=== PATIENT | female | born 1955 | race Caucasian/White ===

== ENCOUNTER 2020-10-16 19:12 | Emergency (ER) | payer BC, SELFPAY ==
[2020-10-16 19:20] VITALS: BP 134/61; PULSE 88; RESP 20; TEMP 37.2; O2SAT 98
--- NOTE | 2020-10-16 19:49 | ED.URI ---
HPI - URI/Sore Throat General Chief Complaint: Upper Respiratory Infection Stated Complaint: Sore Throat, headache, tingle feeling in the Ears Time Seen by Provider: 10/16/20 19:49 Source: patient and RN notes reviewed Mode of arrival: ambulatory Limitations: no limitations History of Present Illness HPI Narrative: 65-year-old female presents to the [facility] with complaints of generalized body aches, sore throat and itching in her ears or tingling in her ears. He just returned from [place] from vacation. is acutely ill and tested positive for Covid. Related Data Home Medications Medication Instructions Recorded Confirmed duloxetine mg PO 10/16/20 ergocalciferol (vitamin D2) 10/16/20 levothyroxine 10/16/20 omeprazole 10/16/20 potassium chloride meq PO 10/16/20 Allergies Allergy/AdvReac Type Severity Reaction Status Date / Time celecoxib Allergy Unknown Unknown Verified 10/16/20 19:30 Review of Systems Review of Systems: All systems reviewed & are unremarkable except as noted in HPI and below Constitutional: Constitutional: Reports no additional constitutional complaints, Denies chills and Denies fever(s) Eyes: Eyes: Reports no additional eye complaints ENT: Reports as per HPI and Reports sore throat Comments: Tingling in ears Cardiovascular: Cardiovascular: Reports no additional cardiovascular complaints Respiratory: Respiratory: Reports no additional respiratory complaints, Denies cough, Denies dyspnea and Denies wheezing Gastrointestinal: Gastrointestinal: Reports no additional gastrointestinal complaints Musculoskeletal: Musculoskeletal: Reports no additional musculoskeletal complaints, Denies myalgias and Denies muscle cramps Integumentary/Breasts: Skin/Breast: Reports system reviewed and no additional complaints, except as docu Neurologic: Reports system reviewed and no additional complaints, except as documented Psychiatric: Psychiatric: Reports no additional psychiatric complaints Allergic/Immunologic: Allergic/Immunologic: Reports no additional allergic/immunologic complaints [facility] Past Medical History Medical History (Updated 10/16/20 @ 20:18 by Brandy Rowe) Anxiety and depression H/O gastroesophageal reflux (GERD) Thyroid disease Surgical History Surgical History (Updated 10/16/20 @ 20:18 by Brandy Rowe) History of weight loss surgery Family History Family History Grandparent Family history of thyroid disease Diabetes mellitus Mother Family history of osteoporosis Family history of arthritis Father Hypertension Malignant neoplasm of prostate Social History Social History Smoking status: Never smoker Alcohol intake: never Comments At the time of my signature, I reviewed and agree with the nursing past medical, surgical, social, and family history. There is no relevant family history pertinent to the patient complaint. Exam Const: General: healthy appearing, no acute distress and alert Nutritional Appearance: well nourished Orientation/consciousness: patient oriented x3 Limitations: no limitations HENMT: Head: normal to inspection Ears: external ears normal, TM's normal bilaterally and EAC's normal Eyes: Conjunctivae: conjunctivae normal Pupils: Equal, round and reactive pupils present Neck: Neck: normal visual inspection, no lymphadenopathy and no meningeal signs Chest: Chest palpation & inspection: normal inspection of the chest Resp: Effort & Inspection: normal respiratory effort Auscultation: clear to auscultation bilaterally Cardio: Rate: regular rate Rhythm: regular rhythm GI: GI Palp: Yes Soft to palpation and No Tenderness to palpation present (GI) : General: Yes no CVA tenderness Skin: General skin exam: normal color Rashes: no rashes Wounds: no wounds Neuro: General: patient oriented x3, moves all extremities, n
== END 2020-10-16 20:00 | disposition home or self-care (01) ==
PROVIDERS: Emergency Provider Nurse Practitioner; PCP Internal Medicine
DX: U07.1 COVID-19 (principal); K21.9 Gastro-esophageal reflux disease without esophagitis; E07.9 Disorder of thyroid, unspecified
CPT/HCPCS: 87426; 99203; C9803; G0463

== ENCOUNTER 2021-09-01 09:24 | Outpatient (CLI) | payer MEDICARE, OTHER, SELFPAY ==
[2021-09-01] MEDS: ZOLEDRONIC ACID 5 MG/100 ML 100 ML 400 MG IVPB (09:45)
[2021-09-01 10:09] VITALS: BP 124/70; PULSE 68; RESP 14; TEMP 36.2; O2SAT 97
[2021-09-01 10:11] VITALS: BMI 47.5
--- NOTE | 2021-09-01 10:11 | PC.NURSE ---
Patient here for yearly IV Reclast infusion. Education given. No concerns voiced. IV Reclast administered. SEE MAR. Tolerated well. Safe exit of hospital.
== END 2021-09-01 09:25 | disposition home or self-care (01) ==
LOC: CHSTREATRM 09:35
PROVIDERS: PCP Internal Medicine; Visit Provider Internal Medicine
DX: M81.0 Age-related osteoporosis without current pathological fracture (principal)
CPT/HCPCS: 96365; 96374; J3489

== ENCOUNTER 2021-11-22 14:19 | Outpatient (CLI) | payer MEDICARE, SELFPAY ==
[2021-11-22 14:46] LABS: Hematocrit 41.4 % (35.0-42.0); Hemoglobin 12.9 g/dL (11.7-13.8)
== END 2021-11-22 14:20 | disposition home or self-care (01) ==
LOC: CHSLAB 14:21
PROVIDERS: PCP Internal Medicine; Visit Provider Anesthesiology
DX: D64.9 Anemia, unspecified (principal)
CPT/HCPCS: 36415; 85014; 85018

== ENCOUNTER 2021-12-02 00:57 | Day surgery (SDC) | payer MEDICARE, OTHER, SELFPAY ==
[2021-11-21 13:14] VITALS: BMI 45.8
--- NOTE | 2021-11-21 13:22 | PC.NURSE ---
PRE-OP INSTRUCTIONS, PLEASE READ CAREFULLY Report to the Outpatient Waiting Room, entrance under the green pavilion located off [facility], at time _0700_ on date _12/02/21_. OR Time: _0900_. Time changes happen often and if your time is changed the preop area will call you the afternoon before. - You and your visitor will be asked to self-screen and do not enter if you have any COVID symptoms. - We encourage only one visitor and NO visitors under age 16 are allowed at this time. Your visitor will receive communication by the phone number that is given day of service. - The patient visitor is requested to social distance or may leave the building when not with patient due to restrictions. - A mask is required within the hospital. Patients may have clear liquids (water, carbonated beverages, clear teas, apple juice) until 3 hours prior to surgery (0600 AM) with a maximum of 20 ounces. - No food from midnight until time of surgery Take the following medications with a SIP of water the morning of surgery: _LEVOTHYROXINE_ Medications to discontinue per ANESTHESIA - _VITAMINS/SUPPLEMENTS 3 DAYS PRIOR TO SURGERY, Date to take last dose 11/28/21_ Please no make-up, nail faroese, hairspray, perfume, deodorant, or body powder the day of surgery. No jewelry (including any body piercings) or valuables the day of surgery, leave them at home. Please take a shower or bath the night before, or the morning of, surgery with an antibacterial soap. Wear comfortable, loose fitting clothing. - Jewelry must be removed prior to entering the operating room. Rings and piercings that are not removed may be cut off. - The hospital will not accept responsibility for valuables. - Please leave all valuables, including medications, at home the day of surgery. If you are going home after surgery, a licensed truck driver heavy must drive you home. - NO public transportation without another adult. - We recommend that an adult stay with you for 24 hours following discharge. - We also recommend that you do not drive, make important decision, drink alcoholic beverages, or take any drugs that were not prescribed by your health care provider for at least 24 hours after your discharge time. Follow any additional instructions given to you from your surgeon. If you or anyone in your household have experienced Covid symptoms in the past week, please notify your surgeon or the nurse liaison at the phone number below for possible testing. Telephone instructions given to ___PT and asked if any additional questions and then verbalized understanding. Patient advised to call surgeon office or pre surgery nurse liaison [phone] if any additional questions.
--- NOTE | 2021-11-27 15:54 | PM.IMHP ---
H&P: HPI History of Present Illness Date/Time: 11/27/21 15:54 Chief Complaint: urge incontinence Narrative: 66-year-old who now receives Botox for urge incontinence. She would like her InterStim device removed Review of Systems Review of Systems: All systems reviewed & are unremarkable except as noted in HPI and below PMFSH Past Medical History Medical History Anxiety and depression H/O gastroesophageal reflux (GERD) Thyroid disease Surgical History Surgical History History of weight loss surgery Family History Family History Grandparent Family history of thyroid disease Diabetes mellitus Mother Family history of osteoporosis Family history of arthritis Father Hypertension Malignant neoplasm of prostate Social History Social History Smoking status: Never smoker Second hand tobacco smoke exposure: No Alcohol intake: never Substance use: never Substance use type: does not use Spiritual care concerns: No Meds Home Medications and Allergies Home Medications Medication Instructions Recorded Confirmed Type duloxetine 60 mg capsule,delayed 60 mg PO DAILY 10/16/20 11/21/21 History release ergocalciferol (vitamin D2) 1,250 1,250 mcg PO WEEKLY 10/16/20 11/21/21 History mcg (50,000 unit) capsule levothyroxine 175 mcg tablet 175 mcg PO DAILY 10/16/20 11/21/21 History omeprazole 40 mg capsule,delayed 40 mg PO DAILY 10/16/20 11/21/21 History release [place] 3 2 tab-cap HS 11/21/21 11/21/21 History biotin 1 tab-cap BID 11/21/21 11/21/21 History calcium citrate 315 mg 1 tablet PO QID 11/21/21 11/21/21 History calcium-vitamin D3 6.25 mcg (250 unit) tablet (Citracal + Vitamin D Maximum) famotidine 40 mg tablet 40 mg HS 11/21/21 11/21/21 History ferrous sulfate 325 mg (65 mg 325 mg PO HS 11/21/21 11/21/21 History iron) tablet (iron) magnesium 200 mg tablet 400 mg PO HS 11/21/21 11/21/21 History multivitamin 2 tablet PO HS 11/21/21 11/21/21 History potassium chloride 20 mEq 60 meq PO HS 11/21/21 11/21/21 History tablet,extended release(part/cryst) (Klor-Con M) vit C 250 mg-vit E 90 mg-zinc 40 1 tablet PO BID 11/21/21 11/21/21 History mg-copper 1 [id number] capsule (PreserVision AREDS-2) vitamin A 25,000 unit capsule 2,400 mcg PO QID 11/21/21 11/21/21 History zinc 50 mg tablet 50 mg PO QID 11/21/21 11/21/21 History Allergies Allergy/AdvReac Type Severity Reaction Status Date / Time celecoxib Allergy Unknown Rash Verified 11/21/21 13:05 Exam Narrative: no acute distress obese normal breathing alert oriented x3 Assessment and Plan Assessment and plan (1) Urge incontinence: Code(s): N39.41 - Urge incontinence Status: Acute Assessment and Plan: will remove her InterStim device per patient request. Risks of bleeding, infection, wound complications, incomplete device removal discussed
--- NOTE | ~2021-12-02 | XR_ITS ---
EXAMINATION: XR fluoroscopy no charge DATE: 12/02/2021 10:05 INDICATION: Neurostimulator removal TECHNIQUE: 2 fluoroscopic images of portions of the abdomen and pelvis were obtained during procedure performed by Dr. Menard. Radiologist was not present for the imaging or procedure. The amount of fl uoroscopy time used during this procedure was 0.1 minutes. COMPARISON: None. FINDINGS: Initial images demonstrate the tip of a metallic probe or hemostat projecting alongside the power sup ply of a neurostimulator which projects over the abdomen. Subsequent image demonstrates the tip of a hemostat projecting over one of the sacral ala through which passes a neurostimulator. Markers indica ting left or right sides of the imaging are not supplied however the neurostimulator and lead were ri ght-sided at the time of a prior CT dated 05/27/2015. IMPRESSION: 1. Fluoroscopy utilized during neurostimulator removal. See procedure note for further detail. Reviewed, dictated and finalized at location A.
--- NOTE | 2021-12-02 07:11 | WPDHPUPDATE1 ---
History and Physical Update Update Date/Time: 12/02/21 07:11 History and Physical has been reviewed, including an updated exam of the patient. There are NO changes in the patient's condition. Risks, benefits, and alternatives have been discussed and questions answered. Patient agrees to proceed with procedure.
[2021-12-02] MEDS: LACTATED RINGERS 1,000 ML 30 ML IV CONT (07:40)
--- NOTE | 2021-12-02 07:51 | WPDANESEPPF ---
Anes - Initial Pre Proc Eval Procedure: Operation Date: 12/02/21 09:00 Proposed Procedures p Removal of Neurostimulator Implant - Osmar Menard MD Date/Time: 12/02/21 07:51 Surgeon: Osmar Menard MD Pre Op Diagnosis: urge incontinence, malfunction of stimulator Patient Data Age: 66 Gender: F Height: 1.57 m Weight: 120 kg Allergies Allergy/AdvReac Type Severity Reaction Status Date / Time celecoxib Allergy Unknown Rash Verified 12/02/21 07:33 Home Medications Medication Instructions Recorded Confirmed Type duloxetine 60 mg capsule,delayed 60 mg PO DAILY 10/16/20 12/02/21 History release ergocalciferol (vitamin D2) 1,250 1,250 mcg PO WEEKLY 10/16/20 12/02/21 History mcg (50,000 unit) capsule levothyroxine 175 mcg tablet 175 mcg PO DAILY 10/16/20 12/02/21 History omeprazole 40 mg capsule,delayed 40 mg PO DAILY 10/16/20 12/02/21 History release [place] 3 2 tab-cap HS 11/21/21 12/02/21 History biotin 1 tab-cap BID 11/21/21 12/02/21 History calcium citrate 315 mg 1 tablet PO QID 11/21/21 12/02/21 History calcium-vitamin D3 6.25 mcg (250 unit) tablet (Citracal + Vitamin D Maximum) famotidine 40 mg tablet 40 mg HS 11/21/21 12/02/21 History ferrous sulfate 325 mg (65 mg 325 mg PO HS 11/21/21 12/02/21 History iron) tablet (iron) magnesium 200 mg tablet 400 mg PO HS 11/21/21 12/02/21 History multivitamin 2 tablet PO HS 11/21/21 12/02/21 History potassium chloride 20 mEq 60 meq PO HS 11/21/21 12/02/21 History tablet,extended release(part/cryst) (Klor-Con M) vit C 250 mg-vit E 90 mg-zinc 40 1 tablet PO BID 11/21/21 12/02/21 History mg-copper 1 [id number] capsule (PreserVision AREDS-2) vitamin A 25,000 unit capsule 2,400 mcg PO QID 11/21/21 12/02/21 History zinc 50 mg tablet 50 mg PO QID 11/21/21 12/02/21 History Patient hx anesthesia problems: none Family hx anesthesia problems: none Results Review: All pre-operative results and documents have been reviewed as part of the pre-operative evaluation. [facility] Past Medical History Medical History (Updated 12/02/21 @ 07:52 by Josh Gonzalez MD) Anxiety and depression H/O gastroesophageal reflux (GERD) HTN (hypertension) Morbid obesity CHASIDY (obstructive sleep apnea) Thyroid disease Surgical History Surgical History (Updated 12/02/21 @ 07:54 by Josh Gonzalez MD) History of total knee arthroplasty History of weight loss surgery Family History Family History Grandparent Family history of thyroid disease Diabetes mellitus Mother Family history of osteoporosis Family history of arthritis Father Hypertension Malignant neoplasm of prostate Social History Social History Smoking status: Never smoker Second hand tobacco smoke exposure: No Alcohol intake: never Substance use: never Substance use type: does not use Living arrangements: with family Spiritual care concerns: No Anes - Eval Final PreProcedure Day of Procedure 12/02/21 07:51 Patient weight: morbidly obese Heart: regular rate and rhythm Lungs: clear to auscultation Airway: Mallampati scale class II Neurological: alert and oriented Last oral intake: >/= 8 hours ASA classification: III Emergent: no Anesthetic plan: proceed Anesthesia type and monitoring: general GIVS and standard monitoring Results Review: All pre-operative results and documents have been reviewed as part of the pre-operative evaluation. Informed Consent: The patient's anesthetic plan and its attendant risks and benefits were discussed with the patient/family/POA. Questions were solicited and answers provided to the satisfaction of the patient/family/POA.
[2021-12-02 07:56] VITALS: BP 132/65; PULSE 93; RESP 16; TEMP 36.6; O2SAT 96
[2021-12-02] MEDS: ceFAZolin 3 GM/D5W 100 ML 100 ML IVPB (09:12)
[2021-12-02] MEDS: BUPIVACAINE/EPINEPHRINE 0.25% 50 ML VIAL INFILTRATE (09:36)
--- NOTE | 2021-12-02 09:55 | P.OP_ITS ---
Procedure Note - Detailed Date of Procedure 12/02/21 Pre-op Diagnosis urge incontinence, malfunction of stimulator Post-op Diagnosis Same Procedure Performed Removal of InterStim device [id number] Surgeon Osmar Menard MD Anesthesia MAC Indications This is a woman now does Botox for urge incontinence. She would like her InterStim device removed. She understands risks of bleeding, infection, wound complications, incomplete device removal. She agrees to proceed Findings Device removed in its entirety Description of Procedure She has correctly identified. Informed consent obtained. She from the operat ing room. She was placed in the prone position. She was given MAC anesthesia. She was prepped and draped in a sterile fashion. Time-out performed. I anesthetized the skin over the pulse generator. I incised the skin. I read moved the pulse generator its entirety. I removed the capsule around the pulse generator in its entirety. I assured hemostasis. I then used fluoroscopy identify my sacral lead. I anesthetized the skin. I incised the skin. I located the sacral lead. I removed it in its entirety. I assured hemostasis. I irrigated out the wounds. I closed the subcutaneous tissues with 2-0 Vicryl. Skin with 4-0 Vicryl. Glue was applied. She was awakened transferred PACU in stable condition. Estimated Blood Loss 5 Complications No immediate complications Condition Stable Disposition PACU
[2021-12-02 09:57] VITALS: BP 131/76; PULSE 89; RESP 16; O2SAT 100
[2021-12-02] MEDS: KETOROLAC 30 MG/ML VIAL (*BKC) IV PUSH (10:20)
[2021-12-02 10:25] VITALS: BP 124/74; PULSE 74; RESP 16; O2SAT 99
[2021-12-02] MEDS: oxyCODONE HCL (*CRX) 5 MG TAB IR PO (10:42)
[2021-12-02 10:55] VITALS: BP 126/84; PULSE 78; RESP 16; O2SAT 99
== END 2021-12-02 11:25 | disposition home or self-care (01) ==
PROVIDERS: PCP Internal Medicine; Visit Provider Urology
PROC: (CPT 64585; principal; 2021-12-02 09:00)
DX: T85.193A Other mechanical complication of implanted electronic neurostimulator, generator, initial encounter (principal); N39.41 Urge incontinence; Y83.8 Other surgical procedures as the cause of abnormal reaction of the patient, or of later complication, without mention of misadventure at the time of the procedure; I10 Essential (primary) hypertension; K21.9 Gastro-esophageal reflux disease without esophagitis; G47.33 Obstructive sleep apnea (adult) (pediatric); E07.9 Disorder of thyroid, unspecified; F41.8 Other specified anxiety disorders; E66.01 Morbid (severe) obesity due to excess calories; Z68.42 Body mass index [BMI] 45.0-49.9, adult
CPT/HCPCS: 64585; 64595; 99199; A9270; J0690; J1885; J2250; J2704; J7120

== ENCOUNTER 2022-01-18 12:10 | Outpatient (CLI) | payer MEDICARE, OTHER, SELFPAY ==
--- NOTE | ~2022-01-18 | MM_ITS ---
EXAMINATION: MM screening [facility] BI w [place] HISTORY: Screening mammogram TECHNIQUE: Craniocaudal and mediolateral oblique 3-D tomosynthesis images were obtained and synthetic 2-D images were generated. CAD analysis was submitted and interpreted. COMPARISON: 01/13/2021, 11/25/2019, 11/19/2018 BREAST PARENCHYMAL COMPOSITION: There are scattered areas of fibroglandular density. FINDINGS: No suspicious mass, calcification, or architectural distortion are identified in either jun ast to suggest malignancy. There has been no suspicious interval change. IMPRESSION: 1. No mammographic evidence of malignancy. 2. Recommend routine screening mammography in one year. BI-RADS Category 1: Negative Reviewed, dictated and finalized at location A. [facility] OF DEEDS
== END 2022-01-18 12:11 | disposition home or self-care (01) ==
LOC: CHSIMG 12:12
PROVIDERS: PCP Internal Medicine; Visit Provider Internal Medicine
DX: Z12.31 Encounter for screening mammogram for malignant neoplasm of breast (principal)
CPT/HCPCS: 77063; 77067

== ENCOUNTER 2022-08-01 09:04 | Outpatient (CLI) | payer MEDICARE, OTHER, SELFPAY ==
--- NOTE | ~2022-08-01 | XR_ITS ---
AP and lateral views of the bilateral hips Clinical history: Pain Findings: No acute fracture or dislocation is seen. Osseous alignment is anatomic. Bilateral hip and SI joint spaces are preserved. Soft tissues are unremarkable. Impression: No significant abnormality is seen. Reviewed, dictated and finalized at [facility]. Impression: No significant abnormality is seen.
--- NOTE | ~2022-08-01 | XR_ITS ---
Lumbosacral Spine: AP and lateral views Clinical History: Pain COMPARISON: 02/20/2011 Findings: The normal lordotic curve is maintained. No fracture identified. There is 10 mm anterolisth esis of L5 over S1. There is moderate to advanced degenerative disc narrowing at L4-L5 and L5-S1. The re is advanced facet arthropathy at L4-L5 and L5-S1. The sacroiliac joints are normally outlined. Impression: 10 mm anterolisthesis of L5 over S1. Moderate to advanced degenerative change from L4 through S1, as detailed above. Reviewed, dictated and finalized at location M. Impression: 10 mm anterolisthesis of L5 over S1. Moderate to advanced degenerative change from L4 through S1, as detailed above.
== END 2022-08-01 09:05 | disposition home or self-care (01) ==
LOC: CHSIMG 09:08
PROVIDERS: PCP Internal Medicine; Visit Provider Internal Medicine
DX: R94.5 Abnormal results of liver function studies (principal); R25.2 Cramp and spasm; M25.552 Pain in left hip; M25.551 Pain in right hip; M43.16 Spondylolisthesis, lumbar region
CPT/HCPCS: 72100; 73521

== ENCOUNTER 2022-08-08 07:59 | Outpatient (CLI) | payer MEDICARE, OTHER, SELFPAY ==
--- NOTE | ~2022-08-08 | US_ITS ---
Limited Abdominal Sonogram: Real-time sonographic imaging of the right upper quadrant was performed. Clinical History: Abnormal liver enzymes Findings: The liver appears mildly echogenic, with no evidence of mass lesion or bile duct dilatatio n. Main portal vein demonstrates normal direction of flow. The gallbladder is absent, compatible prio r cholecystectomy. The common bile duct measures 3 mm. The visualized pancreas, aorta, and IVC are u nremarkable. Impression: Diffuse fatty infiltration of the liver. Status post cholecystectomy. Reviewed, dictated and finalized at location M. Impression: Diffuse fatty infiltration of the liver. Status post cholecystectomy.
== END 2022-08-08 08:00 | disposition home or self-care (01) ==
PROVIDERS: PCP Internal Medicine; Visit Provider Internal Medicine
DX: R79.89 Other specified abnormal findings of blood chemistry (principal); R25.2 Cramp and spasm; M25.552 Pain in left hip; M25.551 Pain in right hip; K76.0 Fatty (change of) liver, not elsewhere classified; Z90.49 Acquired absence of other specified parts of digestive tract
CPT/HCPCS: 76705

== ENCOUNTER 2022-09-04 08:19 | Outpatient (CLI) | payer MEDICARE, OTHER, SELFPAY ==
--- NOTE | ~2022-09-04 | CT_ITS ---
EXAMINATION: CT abdomen pelvis wo con DATE: 09/04/2022 08:32 INDICATION: Incisional hernia TECHNIQUE: Computed tomography (CT) of the abdomen and pelvis was performed without intravenous contr ast. Automated exposure control and iterative reconstruction technique were employed. Exam dose: 128 8.04 mGy-cm total exam DLP. COMPARISON: May 27, 2015 CT abdomen pelvis FINDINGS: The lung bases are clear of infiltrate or consolidation. Normal heart size. No pericardial or pleural effusion. Foramen of Morgagni hernia containing fat, liver, small bowel and colon, without strangulation or obs truction. Small sliding hiatal hernia. Postoperative change of the stomach. Status post cholecystectomy. No bile duct or pancreatic duct dilatation is detected. No hepatic, splenic, pancreatic or adrenal space-occupying mass lesion. There is focal scarring at the anterolateral aspect of the mid right kidney. No renal mass lesion oth er than probable small posterior lateral lower pole left renal cyst is evident on this limited noncon trast examination. No urinary tract calculus or hydroureteronephrosis. The urinary bladder is unremarkable. Status post hysterectomy. Normal caliber of the abdominal aorta. No intraperitoneal or retroperitoneal or pelvic mass lesion or adenopathy or ascites is detected. There is a short loop of transverse colon herniating through a defect in the left anterior abdominal wall. There are at least 4 additional fat-containing ventral abdominal wall hernias near or left of m idline. No strangulation or obstruction is evident on this limited noncontrast examination. There is a small bowel anastomosis in the right lower quadrant. No bowel obstruction or intraperitone al free air is detected. Left L5 pars interarticularis defect. Grade 2 anterolisthesis and severe degenerative disc disease at L5-S1. Moderately severe degenerative disc disease at L4-5. Diffuse idiopathic skeletal hyperostosis of the thoracic spine. Hemangioma of T10. IMPRESSION: At least 5 ventral abdominal wall hernias, one containing a nonobstructed short segment of transverse colon Small sliding hiatal hernia Postoperative change of the stomach Small bowel anastomosis in the right lower quadrant Status post cholecystectomy Status post hysterectomy Focal right renal scarring and probable small cyst of lower pole of left kidney Left L5 pars intra-articular is defect Grade 2 anterolisthesis and severe degenerative disc disease at L5-S1 Moderately severe degenerative disc disease at L4-5 Diffuse idiopathic skeletal hyperostosis of thoracic spine Hemangioma T10 Reviewed, dictated and finalized at Location [facility]. Reviewed, dictated and finalized at location B. IMPRESSION: At least 5 ventral abdominal wall hernias, one containing a nonobs tructed short segment of transverse colon Small sliding hiatal hernia Postoperative change of the stomach Small bowel anastomosis in the right lower quadrant Status post cholecystectomy Status post hysterectomy Focal right renal scarring and probable small cyst of lower pole of left kidney Left L5 pars intra-articular is defect Grade 2 anterolisthesis and severe degenerative disc disease at L5-S1 Moderately severe degenerative disc disease at L4-5 Diffuse idiopathic skeletal hyperostosis of thoracic spine Hemangioma T10
== END 2022-09-04 08:20 | disposition home or self-care (01) ==
LOC: CHSIMG 08:21
PROVIDERS: PCP Internal Medicine; Visit Provider Surgery
DX: K43.2 Incisional hernia without obstruction or gangrene (principal); K44.9 Diaphragmatic hernia without obstruction or gangrene; Z79.899 Other long term (current) drug therapy; K63.89 Other specified diseases of intestine; Z90.49 Acquired absence of other specified parts of digestive tract; Z90.710 Acquired absence of both cervix and uterus; R93.422 Abnormal radiologic findings on diagnostic imaging of left kidney; R93.421 Abnormal radiologic findings on diagnostic imaging of right kidney; M43.17 Spondylolisthesis, lumbosacral region; M51.37 Other intervertebral disc degeneration, lumbosacral region; M48.14 Ankylosing hyperostosis [Forestier], thoracic region; D18.09 Hemangioma of other sites
CPT/HCPCS: 74176

== ENCOUNTER 2022-09-19 09:04 | Outpatient (CLI) | payer MEDICARE, OTHER, SELFPAY ==
[2022-09-19] MEDS: ZOLEDRONIC ACID 5 MG/100 ML 100 ML 400 MG IVPB (09:10)
[2022-09-19 09:27] VITALS: BP 126/68; PULSE 78; RESP 14; TEMP 36.6; O2SAT 97; BMI 47.5
--- NOTE | 2022-09-19 09:30 | PC.NURSE ---
Patient here for yearly IV Reclast infusion. Education given. No concerns voiced. IV Reclast administered. SEE MAR. Tolerated well. Safe exit of hospital per self/amb.
== END 2022-09-19 09:05 | disposition home or self-care (01) ==
LOC: CHSTREATRM 09:10
PROVIDERS: PCP Internal Medicine; Visit Provider Internal Medicine
DX: M81.0 Age-related osteoporosis without current pathological fracture (principal)
CPT/HCPCS: 96374; J3489

== ENCOUNTER 2022-10-18 08:17 | Outpatient (CLI) | payer MEDICARE, OTHER, SELFPAY ==
--- NOTE | 2022-10-18 08:26 | ECG_ITS ---
Measurements Intervals [place] Rate: 74 P: 26 DE: 172 QRS: 6 QRSD: 109 T: 15 QT: 374 QTc: 417 Interpretive Statements SINUS RHYTHM NORMAL ECG NO PREVIOUS ECG AVAILABLE FOR COMPARISON Electronically Signed On 10-18-2022 9:08:15 CDT by Star Rodriguez D.O.
[2022-10-18 08:57] LABS: Hematocrit 41.1 % (37.0-47.0); Hemoglobin 12.9 g/dL (12.0-15.0)
== END 2022-10-18 08:18 | disposition home or self-care (01) ==
LOC: ANHSURGERY 08:22
PROVIDERS: Anesthesiology; PCP Internal Medicine; Visit Provider Surgery
DX: Z01.818 Encounter for other preprocedural examination (principal); K43.0 Incisional hernia with obstruction, without gangrene; Z78.9 Other specified health status
CPT/HCPCS: 36415; 85014; 85018; 93005

== ENCOUNTER 2022-10-23 13:03 | Inpatient (IN) | payer MEDICARE, OTHER, SELFPAY ==
--- NOTE | 2022-10-12 09:26 | PC.NURSE ---
Report to the Outpatient Waiting Room, entrance under the green pavilion located off [facility], at time __1000 on date 10/23/22 . Planned Procedure Time: __1200 . Time changes happen often and if your time is changed the preop area will call you the afternoon before. - You and your visitor will be asked to self-screen and do not enter if you have any COVID symptoms. - A mask is optional within the hospital at this time. Patients may have clear liquids (water, carbonated beverages, clear teas, apple juice) until 3 hours prior to surgery with a maximum of 20 ounces. - No food from midnight until time of surgery - Infants may have breast milk until 4 hours before surgery, infant formula 6 hours prior to surgery. - Children will be allowed to drink immediately following surgery. If applicable, please bring a bottle or sippy cup to assist with drinking. Juice, water, soda, and popsicles are readily available. For infants on formula, please bring formula the day of surgery. Pacifiers are allowed. Take the following medications with a SIP of water the morning of surgery: ____LEVOTHYROXINE DO NOT STOP ANY OF YOUR OTHER PRESCRIPTION MEDICATIONS PRIOR TO SURGERY ?EXCEPT THE FOLLOWING Medications to discontinue per physician ___ALL VITAMINS AND SUPPLEMENTS 3 DAYS PRE OP.LAST DOSE 10/19/22 HIBICLENS SHOWER MORNING OF SURGERY Please no make-up, nail turkmen, hairspray, perfume, deodorant, or body powder the day of surgery. No jewelry (including any body piercings) or valuables the day of surgery, leave them at home. Please take a shower or bath the night before, or the morning of, surgery with an antibacterial soap. Wear comfortable, loose fitting clothing. Children are encouraged to wear pajamas. - Jewelry must be removed prior to entering the operating room. Rings and piercings that are not removed may be cut off. - The hospital will not accept responsibility for valuables. - Please leave all valuables, including medications, at home the day of surgery. If you are going home after surgery, a licensed truck driver must drive you home. - NO public transportation without another adult if you receive anesthesia. - We recommend that an adult stay with you for 24 hours following discharge. - We also recommend that you do not drive, make important decision, drink alcoholic beverages, or take any drugs that were not prescribed by your health care provider for at least 24 hours after your discharge time. Follow any additional instructions given to you from your surgeon. If you or anyone in your household have experienced Covid symptoms in the past week, please notify your surgeon or the nurse liaison at the phone number below for possible testing. Telephone instructions given to _PATIENT and asked if any additional questions and then verbalized understanding. Patient advised to call surgeon office or pre surgery nurse liaison [phone] if any additional questions.
[2022-10-12 09:35] VITALS: BMI 42.5
--- NOTE | 2022-10-12 14:49 | PC.NURSE ---
Report to the Outpatient Waiting Room, entrance under the green pavilion located off [facility], at time _0600 on date _10/23/22 . Planned Procedure Time: ____30____. Time changes happen often and if your time is changed the preop area will call you the afternoon before. - You and your visitor will be asked to self-screen and do not enter if you have any COVID symptoms. - A mask is optional within the hospital at this time. Patients may have clear liquids (water, carbonated beverages, clear teas, apple juice) until 3 hours prior to surgery with a maximum of 20 ounces. - No food from midnight until time of surgery - Infants may have breast milk until 4 hours before surgery, infant formula 6 hours prior to surgery. - Children will be allowed to drink immediately following surgery. If applicable, please bring a bottle or sippy cup to assist with drinking. Juice, water, soda, and popsicles are readily available. For infants on formula, please bring formula the day of surgery. Pacifiers are allowed. Take the following medications with a SIP of water the morning of surgery: ___LEVOTHYROXINE DO NOT STOP ANY OF YOUR OTHER PRESCRIPTION MEDICATIONS PRIOR TO SURGERY ?EXCEPT THE FOLLOWING Medications to discontinue per physician ___ALL VITAMINS AND SUPPLEMENTS 3 DAYS PRE OP.LAST DOSE 10/19/22 HIBICLENS SHOWER MORNING OF SURGERY Please no make-up, nail chinese, hairspray, perfume, deodorant, or body powder the day of surgery. No jewelry (including any body piercings) or valuables the day of surgery, leave them at home. Please take a shower or bath the night before, or the morning of, surgery with an antibacterial soap. Wear comfortable, loose fitting clothing. Children are encouraged to wear pajamas. - Jewelry must be removed prior to entering the operating room. Rings and piercings that are not removed may be cut off. - The hospital will not accept responsibility for valuables. - Please leave all valuables, including medications, at home the day of surgery. If you are going home after surgery, a licensed driver medic must drive you home. - NO public transportation without another adult if you receive anesthesia. - We recommend that an adult stay with you for 24 hours following discharge. - We also recommend that you do not drive, make important decision, drink alcoholic beverages, or take any drugs that were not prescribed by your health care provider for at least 24 hours after your discharge time. For Pediatric surgeries, we recommend two adults accompany the child home. Follow any additional instructions given to you from your surgeon. If you or anyone in your household have experienced Covid symptoms in the past week, please notify your surgeon or the nurse liaison at the phone number below for possible testing. Telephone instructions given to __PATIENT and asked if any additional questions and then verbalized understanding. Patient advised to call surgeon office or pre surgery nurse liaison [phone] if any additional questions.
--- NOTE | 2022-10-12 14:53 | PC.NURSE ---
PT AWARE OF TIME CHANGE
[2022-10-23] VITALS (17 sets, daily range): BP systolic 116–143; BP diastolic 60–78; PULSE 64–81; RESP 12–19; TEMP 36.3–37.4; O2SAT 93–98
[2022-10-23] MEDS: LACTATED RINGERS 1,000 ML 30 ML IV CONT ×2 (06:30→10:57)
--- NOTE | 2022-10-23 06:54 | WPDANESEPPF ---
Anes - Initial Pre Proc Eval Procedure: Operation Date: 10/23/22 07:30 Proposed Procedures p Open Incarcerated Incisional Hernia Repair with Mesh, Bilateral Component Separation - Matthew Nielsen DO Date/Time: 10/23/22 06:54 Surgeon: Matthew Nielsen DO Pre Op Diagnosis: Incarcerated Incisional Hernia Patient Data Age: 67 Gender: F Height: 1.6 m Weight: 108.9 kg Allergies Allergy/AdvReac Type Severity Reaction Status Date / Time celecoxib Allergy Unknown Rash Verified 10/12/22 09:14 meloxicam Allergy Abdominal Verified 10/12/22 09:14 Pain Home Medications Medication Instructions Recorded Confirmed Type duloxetine 60 mg capsule,delayed 60 mg PO HS 10/16/20 10/12/22 History release ergocalciferol (vitamin D2) 1,250 1,250 mcg PO WEEKLY 10/16/20 10/12/22 History mcg (50,000 unit) capsule levothyroxine 175 mcg tablet 175 mcg PO DAILY 10/16/20 10/12/22 History omeprazole 40 mg capsule,delayed 40 mg PO DAILY 10/16/20 10/12/22 History release Amery 3 2 tab-cap PO QPM 11/21/21 10/12/22 History calcium citrate 315 mg 1 tablet PO QID 11/21/21 10/12/22 History calcium-vitamin D3 6.25 mcg (250 unit) tablet (Citracal + Vitamin D Maximum) ferrous sulfate 325 mg (65 mg 325 mg PO QPM 11/21/21 10/12/22 History iron) tablet (iron) magnesium 200 mg tablet 400 mg PO HS 11/21/21 10/12/22 History potassium chloride 20 mEq 60 meq PO HS 11/21/21 10/12/22 History tablet,extended release(part/cryst) (Klor-Con M) vit C 250 mg-vit E 90 mg-zinc 40 1 tablet PO BID 11/21/21 10/12/22 History mg-copper 1 [id number] capsule (PreserVision AREDS-2) vitamin A 7,500 mcg (25,000 unit) 2,400 mcg PO TID 11/21/21 10/12/22 History capsule zinc 50 mg tablet 50 mg PO BID 11/21/21 10/12/22 History biotin 5 mg tablet 8 mg PO BID 10/12/22 10/12/22 History Patient hx anesthesia problems: none Family hx anesthesia problems: none Results Review: All pre-operative results and documents have been reviewed as part of the pre-operative evaluation. FOR[facility]LY [facility] Past Medical History Medical History Anxiety and depression H/O gastroesophageal reflux (GERD) HTN (hypertension) Morbid obesity CHASIDY (obstructive sleep apnea) Thyroid disease Surgical History Surgical History History of hysterectomy History of total knee arthroplasty History of weight loss surgery Hx of umbilical hernia repair Family History Family History Grandparent Family history of thyroid disease Diabetes mellitus Mother Family history of osteoporosis Family history of arthritis Father Hypertension Malignant neoplasm of prostate Social History Social History Smoking status: Never smoker Second hand tobacco smoke exposure: No Alcohol intake: never Substance use: never Substance use type: does not use Living arrangements: with family Spiritual care concerns: No Anes - Eval Final PreProcedure Day of Procedure 10/23/22 06:54 Patient weight: morbidly obese Heart: regular rate and rhythm Lungs: clear to auscultation Airway: Mallampati scale class II Neurological: alert and oriented Last oral intake: >/= 8 hours ASA classification: III Emergent: no Anesthetic plan: proceed Anesthesia type and monitoring: general ETT and standard monitoring Results Review: All pre-operative results and documents have been reviewed as part of the pre-operative evaluation. Informed Consent: The patient's anesthetic plan and its attendant risks and benefits were discussed with the patient/family/POA. Questions were solicited and answers provided to the satisfaction of the patient/family/POA.
--- NOTE | 2022-10-23 07:07 | PM.IMHP ---
H&P: HPI History of Present Illness Date/Time: 10/23/22 07:07 Chief Complaint: Incisional hernia Narrative: 67 yo woman presents for incisional hernia repair. 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 She denies any changes since last seen in office. Review of Systems Review of Systems: All systems reviewed & are unremarkable except as noted in HPI and below Constitutional: Constitutional: Denies chills, Denies fever(s), Denies headache(s) and Denies weight loss Eyes: Eyes: Denies change in vision ENT: Denies dizziness, Denies headache(s), Denies neck mass and Denies throat swelling Cardiovascular: Cardiovascular: Denies chest pain, Denies lightheadedness and Denies dyspnea Respiratory: Respiratory: Denies cough, Denies dyspnea and Denies wheezing Gastrointestinal: Gastrointestinal: Denies abdominal pain, Denies change in bowel habits, Denies nausea and Denies vomiting Genitourinary: Genitourinary: Denies hematuria and Denies dysuria Musculoskeletal: Musculoskeletal: Reports as per HPI Integumentary/Breasts: Skin/Breast: Reports as per HPI Neurologic: Denies dizziness and Denies headache(s) Allergic/Immunologic: Allergic/Immunologic: Denies throat swelling and Denies wheezing PMFSH Past Medical History Medical History Anxiety and depression H/O gastroesophageal reflux (GERD) HTN (hypertension) Morbid obesity CHASIDY (obstructive sleep apnea) Thyroid disease Surgical History Surgical History History of hysterectomy History of total knee arthroplasty History of weight loss surgery Hx of umbilical hernia repair Family History Family History Grandparent Family history of thyroid disease Diabetes mellitus Mother Family history of osteoporosis Family history of arthritis Father Hypertension Malignant neoplasm of prostate Social History Social History Smoking status: Never smoker Second hand tobacco smoke exposure: No Alcohol intake: never Substance use: never Substance use type: does not use Living arrangements: with family Spiritual care concerns: No Meds Home Medications and Allergies Home Medications Medication Instructions Recorded Confirmed Type duloxetine 60 mg capsule,delayed 60 mg PO HS 10/16/20 10/12/22 History release ergocalciferol (vitamin D2) 1,250 1,250 mcg PO WEEKLY 10/16/20 10/12/22 History mcg (50,000 unit) capsule levothyroxine 175 mcg tablet 175 mcg PO DAILY 10/16/20 10/12/22 History omeprazole 40 mg capsule,delayed 40 mg PO DAILY 10/16/20 10/12/22 History release Conde 3 2 tab-cap PO QPM 11/21/21 10/12/22 History calcium citrate 315 mg 1 tablet PO QID 11/21/21 10/12/22 History calcium-vitamin D3 6.25 mcg (250 unit) tablet (Citracal + Vitamin D Maximum) ferrous sulfate 325 mg (65 mg 325 mg PO QPM 11/21/21 10/12/22 History iron) tablet (iron) magnesium 200 mg tablet 400 mg PO HS 11/21/21 10/12/22 History potassium chloride 20 mEq 60 meq PO HS 11/21/21 10/12/22 History tablet,extended release(part/cryst) (Klor-Con M) vit C 250 mg-vit E 90 mg-zinc 40 1 tablet PO BID 11/21/21 10/12/22 History mg-copper 1 [id number]-digcwi capsule (PreserVision AREDS-2) vitamin A 7,500 mcg (25,000 unit) 2,400 mcg PO TID 11/21/21 10/12/22 History capsule zinc 50 mg tablet 50 mg PO BID 11/21/21 10/12/22 History biotin 5 mg tablet 8 mg PO BID 10/12/22 10/12/22 History Allergies Allergy/AdvReac Type Severity Reaction Status Date / Time celecoxib Allergy Unknown Rash Verified 10/23/22 07:08 meloxicam Allergy Abdominal Verified 10/23/22 07:08 Pain Exam Const: General: no acute distress and alert Orientation/consciousness: patient oriented x3 HENMT: Hea
--- NOTE | 2022-10-23 07:09 | WPDHPUPDATE1 ---
History and Physical Update Update Date/Time: 10/23/22 07:09 History and Physical has been reviewed, including an updated exam of the patient. There are NO changes in the patient's condition. Risks, benefits, and alternatives have been discussed and questions answered. Patient agrees to proceed with procedure.
[2022-10-23] MEDS: ACETAMINOPHEN 500 MG TABLET 1000 MG PO ×2 (07:25→14:00)
[2022-10-23] MEDS: KETOROLAC 15 MG/ML VIAL (*BKC) IV PUSH (07:25)
[2022-10-23] MEDS: ceFAZolin 2 GM/D5W 50 ML 2 GM/50 ML BAG IVPB (07:27)
[2022-10-23] MEDS: ALVIMOPAN 12 MG CAPSULE PO (07:27)
--- NOTE | 2022-10-23 11:01 | W.PM.PROC2 ---
Procedure Note - Detailed Date of Procedure 10/23/22 Pre-op Diagnosis Incarcerated Incisional Hernia Post-op Diagnosis Same (13 cm Incarcerated incisional hernia) Procedure Performed 1. Open retrorectus 13 cm incarcerated incisional hernia repair with mesh 2. Bilateral myofascial advancement (Transversus abdominus release--3 cm on the left and 2 cm on the right) Surgeon Matthew Nielsen, DO Anesthesia General Indications This is a 67-year-old woman who presented with a palpable bulge on her mid abdomen. She had noticed this over the past several months. She has a surgical history of open gastric bypass surgery and umbilical hernia repair. She was found to have a large palpable bulge in her upper abdomen just superior to the umbilicus. A CT was obtained to further assess the size of the hernia and she was found to multiple hernias extending along her scar from her previous surgery. Discussions were made with the patient about treatment options and decision was made to proceed with an open incarcerated incisional hernia repair with mesh, bilateral component separation. Findings Open incarcerated incisional hernia repair was performed. The patient was found to have multiple incisional hernias along her midline upper abdomen the length of the hernias measured 13 cm from the superior edge of the most cephalad hernia to the inferior edge of the most caudad hernia. The widest hernia was about 5 cm wide. There were about 5 or 6 hernias total along the scar. The hernias appeared to be incarcerated with omentum but the bowel did not appear to be involved. A retro rectus space was initially developed. The fascia still appeared to be tight to bring back together, therefore transversus abdominis release was performed initially on the left. There was still some tension to the fascia and decision was made to perform transversus abdominis release on the right as well. There was about 3 cm advancement on the left and 2 cm advancement on the right. Description of Procedure Procedure as well as risks, benefits, and alternatives were discussed with the patient. Written consent was obtained and placed in chart prior to procedure. Patient was brought back to surgical suite. She was placed supine on operating table. Time-out was done to confirm patient and procedure. She was then intubated by the anesthesia department. Her abdomen was then prepped and draped in sterile fashion using chlorhexidine prep. A 25 cm vertical midline incision was made from the subxiphoid region all the way to just below the umbilicus using a 10 blade scalpel. Electrocautery was used for hemostasis dissection through the subcutaneous tissue. The hernia defects were identified and the hernia sacs were carefully dissected free from the subcutaneous attachments circumferentially. This was carried out all the way down to the level of the fascia. I then cleared the linea alba using electrocautery just superior and inferior to hernia defects. The length width the hernias were then measured. There was about 13 cm between the superior and inferior hernia and the widest hernia measured about 5 cm wide. The fascia was incised at the linea Alba just superior to the most cephalad hernia using electrocautery. I then entered into the peritoneal cavity using electrocautery. There were omental adhesions up to the wall omentum contained within each of hernia defects. I carefully reduced the omentum from each of the hernias and cleared the abdominal wall of all the adhesions using electrocautery and blunt dissection. The retrorectus space was then initially developed along left rectus muscle. Electrocautery was used to dissect the posterior rectus sheath off of the rectus muscle starting from the mid abdomen and extending cephalad caudad. This space was dissected all the way from the xiphoid to space of Retzius. I then performed this along the right rectus muscle as well. The fascia appeared to be difficult
[2022-10-23] MEDS: fentaNYL CITRATE INJ (*CRX) 100 MCG/2 ML VIAL 25 MCG IV PUSH ×4 (11:30→12:17)
--- NOTE | 2022-10-23 13:33 | PC.NURSE ---
This patient, Janet Rai, was admitted to [address] [facility] Surg Room 327-01. Patient/family oriented to hospital policies and general routines including ID bracelet, bed and alarms, visiting hours, pain management, procedures, bathroom and other care routines, personal items, smoking policy, room service/diet, and visiting hours. Information on how to activate the Rapid Response Team has been discussed. Patient/Family are encouraged to report perceived risks to care and to ask questions if they do not understand what they are told or what they should do.
[2022-10-23] MEDS: LACTATED RINGERS 1,000 ML 100 ML IV CONT (14:00)
[2022-10-23] MEDS: POTASSIUM CHLORIDE 20 MEQ ER TABLET 60 MEQ PO (20:12)
[2022-10-23] MEDS: DULoxetine HCL 60 MG CAPSULE.DR PO (20:13)
[2022-10-23] MEDS: MAGNESIUM OXIDE 400 MG TABLET PO (20:13)
[2022-10-23] MEDS: PANTOPRAZOLE 40 MG TABLET PO (20:13)
[2022-10-23] MEDS: oxyCODONE HCL (*CRX) 5 MG TAB IR PO (20:15)
[2022-10-24] MEDS: ACETAMINOPHEN 500 MG TABLET 1000 MG PO ×4 (00:59→18:23)
[2022-10-24 03:11] VITALS: BP 102/69; PULSE 80; RESP 16; TEMP 36.2; O2SAT 93
[2022-10-24] MEDS: LEVOTHYROXINE SODIUM 75 MCG TABLET PO (05:41)
[2022-10-24] MEDS: LEVOTHYROXINE SODIUM 100 MCG TABLET PO (05:41)
[2022-10-24 06:04] LABS: Hemoglobin 11.6 g/dL (12.0-15.0); Mean Corpuscular HGB Conc 31.4 g/dl (32-36); Mean Corpuscular Hemoglobin 32.5 pg (26-34); Mean Corpuscular Volume 103.6 fl (80-100); Mean Platelet Volume 9.3 fl (7.4-10.4); Platelet Count Result 257 k/mm3 (150-375); Red Blood Count 3.57 M/mm3 (4.2-5.4); Red Cell Distribution Width 12.8 % (11.5-14.5)
[2022-10-24 06:17] LABS: Anion Gap 2 mmol/L (8-16); Blood Urea Nitrogen 10 mg/dL (7-17); Calcium 7.3 mg/dL (8.4-10.2); Carbon Dioxide 27 mmol/L (22-30); Chloride 106 mmol/L (98-107); Estimated CRCL calculation 110 ml/min; Estimated Glomerular Filt Rate > 60; Glucose 112 mg/dL (65-110); Potassium 4.4 mmol/L (3.4-5.0); Sodium 135 mmol/L (137-145)
[2022-10-24] MEDS: oxyCODONE HCL (*CRX) 5 MG TAB IR PO (06:47)
--- NOTE | 2022-10-24 07:42 | WPDANESPN ---
Anes - Prog Note Post-Op Date/Time: 10/24/22 07:42 Cardiovascular status: normal Respiratory status: normal Airway patency: baseline Mental status: baseline Post-Op hydration status: normal Vital Signs: Last Vital Signs Temp 97.1 F L 10/24/22 03:11 Pulse 80 10/24/22 03:11 Resp 16 10/24/22 03:11 BP 102/69 10/24/22 03:11 Pulse Ox 93 10/24/22 03:11 O2 Del Method Nasal Cannula 10/23/22 20:00 O2 Flow Rate 2 10/23/22 20:00 FiO2 28 10/23/22 20:00 Pain Score (VAS): 0 at rest 10 with movement I/O: Intake & Output 10/23/22 10/23/22 10/24/22 15:59 23:59 07:59 Intake Total 600 370 350 Output Total 280 850 Balance 320 370 -500 Laboratory Tests 10/24/22 05:39 10/24/22 05:39 10/24/22 05:39 WBC 8.0 RBC 3.57 L Hgb 11.6 L Hct 37.0 MCV 103.6 H MCH 32.5 MCHC 31.4 L RDW 12.8 Plt Count 257 MPV 9.3 Sodium 135 L Potassium 4.4 Chloride 106 Carbon Dioxide 27 Anion Gap 2 L BUN 10 Creatinine 0.50 L Estim Creat Clear Calc 110 Estimated GFR > 60 Glucose 112 H Calcium 7.3 L Post-procedural complaints: none Patient Feedback: Patient satisfied with anesthetic care.
[2022-10-24 08:00] VITALS: BP 108/42; PULSE 83; RESP 18; TEMP 36.7; O2SAT 94
[2022-10-24] MEDS: polyethylene glycoL 3350 17 GM POWD.PACK PO (08:39)
[2022-10-24] MEDS: PANTOPRAZOLE 40 MG TABLET PO ×2 (08:39→20:35)
[2022-10-24] MEDS: ALVIMOPAN 12 MG CAPSULE PO ×2 (08:41→20:35)
[2022-10-24] MEDS: ENOXAPARIN 40 MG/0.4 ML SYRINGE SUB-Q (08:43)
[2022-10-24 12:00] VITALS: BP 112/62; PULSE 80; RESP 18; TEMP 36.7; O2SAT 94
--- NOTE | 2022-10-24 12:07 | PM.PNGS ---
Progress Note: A&P Assessment and Plan (1) Incisional hernia: Qualifiers: Obstruction and gangrene presence: without obstruction or gangrene Qualified Code(s): K43.2 - Incisional hernia without obstruction or gangrene Code(s): K43.2 - Incisional hernia without obstruction or gangrene Status: Acute Assessment and Plan: Doing well on POD#1. Continue gradually increasing activity. Monitor drain output. Possibly home in 1-2 more days. Subjective Subjective Date/Time Seen: 10/24/22 12:07 Interval history: Doing well on POD#1. Pain improving. Not ambulating yet. Exam GI: Inspection: non-distended and other (CHE serosanguinous) GI Palp: Yes Soft to palpation and Yes Tenderness to palpation present (GI) (Incisional) Objective Data Vital Signs Vital Signs: Vital Signs - 24 hr 10/23/22 12:10 10/23/22 12:25 10/23/22 12:40 Temperature Pulse Rate 64 75 77 Respiratory Rate 12 12 18 Blood Pressure 129/74 116/69 126/69 Pulse Oximetry 98 97 95 Oxygen Delivery Room Air Room Air Nasal Cannula Oxygen Flow Rate 2 Fraction of Inspired Oxygen 10/23/22 12:51 10/23/22 13:30 10/23/22 13:45 Temperature 36.4 C 36.4 C Pulse Rate 81 67 70 Respiratory Rate 12 16 16 Blood Pressure 120/78 140/65 131/66 Pulse Oximetry 96 96 94 Oxygen Delivery Nasal Cannula Oxygen Flow Rate 2 Fraction of Inspired Oxygen 10/23/22 14:15 10/23/22 15:15 10/23/22 19:21 Temperature 36.4 C 36.6 C 37.4 C Pulse Rate 68 72 78 Respiratory Rate 16 16 16 Blood Pressure 143/65 H 125/60 131/64 Pulse Oximetry 95 96 94 Oxygen Delivery Oxygen Flow Rate Fraction of Inspired Oxygen 10/23/22 20:00 10/23/22 22:33 10/23/22 20:00 Temperature 36.7 C Pulse Rate 78 77 Respiratory Rate 16 18 Blood Pressure 122/67 Pulse Oximetry 94 95 95 Oxygen Delivery Nasal Cannula Nasal Cannula Oxygen Flow Rate 2 2 Fraction of Inspired Oxygen 10/24/22 03:11 10/24/22 08:00 Temperature 36.2 C L 36.7 C Pulse Rate 80 83 Respiratory Rate 16 18 Blood Pressure 102/69 108/42 L Pulse Oximetry 93 94 Oxygen Delivery Oxygen Flow Rate Fraction of Inspired Oxygen Intake/Output Intake/Output: Intake & Output 10/21/22 10/22/22 10/23/22 10/24/22 23:59 23:59 23:59 23:59 Intake Total 1020 590 Output Total 280 850 Balance 740 -260 Meds/Results Medications: Active Medications Generic Name Dose Route Start Last Admin Trade Name Freq PRN Reason Stop Dose Admin Acetaminophen 1,000 mg 10/23/22 13:03 10/24/22 06:00 Acetaminophen 500 Mg Tablet PO 1,000 mg Q6H RED Administration Alvimopan 12 mg 10/24/22 09:00 10/24/22 08:41 Alvimopan 12 Mg Capsule PO 10/30/22 21:01 12 mg Q12HR RED Administration Duloxetine HCl 60 mg 10/23/22 21:00 10/23/22 20:13 Duloxetine Hcl 60 Mg Capsule.Dr PO 60 mg HS RED Administration Enoxaparin Sodium 40 mg 10/24/22 09:00 10/24/22 08:43 Enoxaparin 40 Mg/0.4 Ml Syringe SUB-Q 40 mg DAILY RED Administration Hydromorphone HCl 0.5 mg 10/23/22 13:03 Hydromorphone Hcl Inj (*Crx) 1 Mg/Ml Syr IV PUSH Q2H PRN Pain Rated 4-6 Hydromorphone HCl 1 mg 10/23/22 13:03 Hydromorphone Hcl Inj (*Crx) 1 Mg/Ml Syr IV PUSH Q2H PRN Pain Rated 7-10 Levothyroxine Sodium 75 mcg 10/24/22 06:30 10/24/22 05:41 Levothyroxine Sodium 75 Mcg Tablet PO 75 mcg DAILY@0630 RED Administration Levothyroxine Sodium 100 mcg 10/24/22 06:30 10/24/22 05:41 Levothyroxine Sodium 100 Mcg Tablet PO 100 mcg DAILY@0630 RED Administration Magnesium Oxide 400 mg 10/23/22 21:00 10/23/22 20:13 Magnesium Oxide 400 Mg Tablet PO 400 mg HS RED Administration Ondansetron HCl 4 mg 10/23/22 13:03 Ondansetron Inj 4 Mg/2 Ml Vial IV PUSH Q4H PRN Nausea And Vomiting Oxycodone HCl 5 mg 10/23/22 13:03 10/24/22 06:47 Oxycodone Hcl (*Crx) 5 Mg Tab Ir PO 5 mg Q4H PRN Administration Pain
[2022-10-24] MEDS: oxyCODONE HCL (*CRX) 5 MG TAB IR 10 MG PO ×2 (14:10→18:23)
[2022-10-24 16:00] VITALS: BP 105/39; PULSE 92; RESP 18; TEMP 35.9; O2SAT 90
[2022-10-24 20:00] VITALS: BP 118/44; PULSE 77; RESP 16; TEMP 36.3; O2SAT 91
[2022-10-24] MEDS: DULoxetine HCL 60 MG CAPSULE.DR PO (20:35)
[2022-10-24] MEDS: MAGNESIUM OXIDE 400 MG TABLET PO (20:35)
[2022-10-24] MEDS: POTASSIUM CHLORIDE 20 MEQ ER TABLET 60 MEQ PO (20:36)
[2022-10-25] VITALS (10 sets, daily range): BP systolic 102–117; BP diastolic 43–61; PULSE 74–97; RESP 16–20; TEMP 35.9–37.2; O2SAT 87–95
[2022-10-25] MEDS: ACETAMINOPHEN 500 MG TABLET 1000 MG PO ×4 (01:12→18:22)
[2022-10-25] MEDS: oxyCODONE HCL (*CRX) 5 MG TAB IR 10 MG PO ×2 (02:10→08:43)
[2022-10-25] MEDS: LEVOTHYROXINE SODIUM 100 MCG TABLET PO (06:23)
[2022-10-25] MEDS: LEVOTHYROXINE SODIUM 75 MCG TABLET PO (06:23)
[2022-10-25] MEDS: ENOXAPARIN 40 MG/0.4 ML SYRINGE SUB-Q (08:43)
[2022-10-25] MEDS: polyethylene glycoL 3350 17 GM POWD.PACK PO (08:43)
[2022-10-25] MEDS: ALVIMOPAN 12 MG CAPSULE PO ×2 (08:43→20:00)
[2022-10-25] MEDS: PANTOPRAZOLE 40 MG TABLET PO ×2 (08:44→20:00)
--- NOTE | 2022-10-25 12:07 | PM.PNGS ---
Progress Note: A&P Assessment and Plan (1) Incisional hernia: Qualifiers: Obstruction and gangrene presence: without obstruction or gangrene Qualified Code(s): K43.2 - Incisional hernia without obstruction or gangrene Code(s): K43.2 - Incisional hernia without obstruction or gangrene Status: Acute Assessment and Plan: Will check labs this afternoon since patient is lightheaded--rule out any worsening anemia or electrolyte abnormalities. Continue slowly increasing activities. Encarnacion out per Nursing protocol. Subjective Subjective Date/Time Seen: 10/25/22 12:07 Interval history: Feeling lightheaded today. Tolerating diet. Passing flatus. Pain controlled. No nausea or vomiting. Exam GI: Inspection: non-distended, incision (dressing dry) and other (CHE serosanguinous) Objective Data Vital Signs Vital Signs: Vital Signs - 24 hr 10/24/22 16:00 10/24/22 19:49 10/24/22 20:00 Temperature 35.9 C L 36.3 C L Pulse Rate 92 77 Respiratory Rate 18 16 Blood Pressure 105/39 L 118/44 L Pulse Oximetry 90 91 Oxygen Delivery Room Air 10/25/22 00:00 10/25/22 04:00 10/25/22 08:00 Temperature 35.9 C L 37.0 C 36.1 C L Pulse Rate 76 74 75 Respiratory Rate 16 18 18 Blood Pressure 113/57 L 102/61 110/45 L Pulse Oximetry 94 94 95 Oxygen Delivery 10/25/22 11:43 Temperature 36.3 C L Pulse Rate 97 Respiratory Rate 18 Blood Pressure 102/58 L Pulse Oximetry 95 Oxygen Delivery Intake/Output Intake/Output: Intake & Output 10/22/22 10/23/22 10/24/22 10/25/22 23:59 23:59 23:59 23:59 Intake Total 1020 1070 490 Output Total 280 1520 2070 Balance 971 -[phone] -5037 Meds/Results Medications: Active Medications Generic Name Dose Route Start Last Admin Trade Name Freq PRN Reason Stop Dose Admin Acetaminophen 1,000 mg 10/23/22 13:03 10/25/22 06:23 Acetaminophen 500 Mg Tablet PO 1,000 mg Q6H RED Administration Alvimopan 12 mg 10/24/22 09:00 10/25/22 08:43 Alvimopan 12 Mg Capsule PO 10/30/22 21:01 12 mg Q12HR RED Administration Duloxetine HCl 60 mg 10/23/22 21:00 10/24/22 20:35 Duloxetine Hcl 60 Mg Capsule.Dr PO 60 mg HS RED Administration Enoxaparin Sodium 40 mg 10/24/22 09:00 10/25/22 08:43 Enoxaparin 40 Mg/0.4 Ml Syringe SUB-Q 40 mg DAILY RED Administration Hydromorphone HCl 0.5 mg 10/23/22 13:03 Hydromorphone Hcl Inj (*Crx) 1 Mg/Ml Syr IV PUSH Q2H PRN Pain Rated 4-6 Hydromorphone HCl 1 mg 10/23/22 13:03 Hydromorphone Hcl Inj (*Crx) 1 Mg/Ml Syr IV PUSH Q2H PRN Pain Rated 7-10 Levothyroxine Sodium 75 mcg 10/24/22 06:30 10/25/22 06:23 Levothyroxine Sodium 75 Mcg Tablet PO 75 mcg DAILY@0630 [facility] Administration Levothyroxine Sodium 100 mcg 10/24/22 06:30 10/25/22 06:23 Levothyroxine Sodium 100 Mcg Tablet PO 100 mcg DAILY@0630 [facility] Administration Magnesium Oxide 400 mg 10/23/22 21:00 10/24/22 20:35 Magnesium Oxide 400 Mg Tablet PO 400 mg HS RED Administration Ondansetron HCl 4 mg 10/23/22 13:03 Ondansetron Inj 4 Mg/2 Ml Vial IV PUSH Q4H PRN Nausea And Vomiting Oxycodone HCl 2.5 mg 10/25/22 12:07 Oxycodone Hcl (*Crx) 2.5 Mg Tab Ir PO Q4H PRN Pain Rated 4-6 Oxycodone HCl 5 mg 10/25/22 12:07 Oxycodone Hcl (*Crx) 5 Mg Tab Ir PO Q4H PRN Pain Rated 7-10 Pantoprazole Sodium 40 mg 10/23/22 21:00 10/25/22 08:44 Pantoprazole 40 Mg Tablet PO 40 mg Q12HR RED Administration Polyethylene Glycol 17 gm 10/24/22 09:00 10/25/22 08:43 Polyethylene Glycol 3350 17 Gm Powd.Pack PO 17 gm QAM RED Administration Potassium Chloride 60 meq 10/23/22 21:00 10/24/22 20:36 Potassium Chloride 20 Meq Er Tablet PO 11/22/22 20:59 60 meq HS RED Administration
[2022-10-25 12:25] LABS: Hematocrit 38.7 % (37.0-47.0); Hemoglobin 11.9 g/dL (12.0-15.0); Mean Corpuscular HGB Conc 30.7 g/dl (32-36); Mean Corpuscular Hemoglobin 32.5 pg (26-34); Mean Corpuscular Volume 105.7 fl (80-100); Mean Platelet Volume 9.5 fl (7.4-10.4); Platelet Count Result 265 k/mm3 (150-375); Red Blood Count 3.66 M/mm3 (4.2-5.4); Red Cell Distribution Width 12.8 % (11.5-14.5); White Blood Count 6.9 K/mm3 (4.5-10.0)
[2022-10-25 12:36] LABS: Anion Gap 3 mmol/L (8-16); Blood Urea Nitrogen 10 mg/dL (7-17); Calcium 8.3 mg/dL (8.4-10.2); Carbon Dioxide 29 mmol/L (22-30); Chloride 103 mmol/L (98-107); Estimated CRCL calculation 93 ml/min; Estimated Glomerular Filt Rate > 60; Glucose 108 mg/dL (65-110); Magnesium 2.2 mg/dL (1.6-2.3); Potassium 4.3 mmol/L (3.4-5.0); Sodium 135 mmol/L (137-145)
[2022-10-25] MEDS: oxyCODONE HCL (*CRX) 5 MG TAB IR PO ×2 (13:45→18:22)
[2022-10-25] MEDS: POTASSIUM CHLORIDE 20 MEQ ER TABLET 60 MEQ PO (19:59)
[2022-10-25] MEDS: DULoxetine HCL 60 MG CAPSULE.DR PO (20:00)
[2022-10-25] MEDS: MAGNESIUM OXIDE 400 MG TABLET PO (20:00)
--- NOTE | 2022-10-25 20:07 | PC.NURSE ---
found pt at 88% ra used IS increased to 90%, placed on 2 L nc while sleeping.
[2022-10-26 01:00] VITALS: BP 113/47; PULSE 87; RESP 18; TEMP 36.5; O2SAT 95
[2022-10-26 04:00] VITALS: BP 123/50; PULSE 103; RESP 18; TEMP 35.5; O2SAT 93
[2022-10-26] MEDS: oxyCODONE HCL (*CRX) 5 MG TAB IR PO ×3 (04:52→13:14)
[2022-10-26] MEDS: ACETAMINOPHEN 500 MG TABLET 1000 MG PO ×2 (06:23→13:14)
[2022-10-26] MEDS: LEVOTHYROXINE SODIUM 100 MCG TABLET PO (06:23)
[2022-10-26] MEDS: LEVOTHYROXINE SODIUM 75 MCG TABLET PO (06:23)
[2022-10-26] MEDS: ENOXAPARIN 40 MG/0.4 ML SYRINGE SUB-Q (09:02)
[2022-10-26] MEDS: ALVIMOPAN 12 MG CAPSULE PO (09:02)
[2022-10-26] MEDS: polyethylene glycoL 3350 17 GM POWD.PACK PO (09:03)
[2022-10-26] MEDS: PANTOPRAZOLE 40 MG TABLET PO (09:03)
--- NOTE | 2022-10-26 11:30 | PM.DS ---
DS: Admitting Diagnosis Discharge Date 10/26/2022 Admitting Diagnosis Incisional hernia DS: Discharge Diagnosis Discharge Diagnosis (1) Incisional hernia: Qualifiers: Obstruction and gangrene presence: without obstruction or gangrene Qualified Code(s): K43.2 - Incisional hernia without obstruction or gangrene Code(s): K43.2 - Incisional hernia without obstruction or gangrene Status: Acute DS: Summary Hospital Course Reason for hospitalization: This is a 67-year-old woman who presented for incisional hernia repair on 10/23/2022. 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 She was initially evaluated in the office by Dr. Carrero and decision was made to proceed with incisional hernia repair with mesh and bilateral component separation. Hospital Course: Patient had open retro rectus 13 cm incarcerated incisional hernia repair with mesh, bilateral myofascial advancement by Dr. Carrero on 10/23/2022. She was admitted postoperatively for monitoring. CHE drain was placed during surgery and monitored postoperatively. She slowly advanced her activity as tolerated. Her diet was advanced as tolerated. Her Encarnacion catheter was removed per nursing protocol. Postop day 2 she was feeling lightheaded, but otherwise doing well. Labs were repeated due to her lightheadedness, and were essentially unremarkable. Bowel function returned on postop day 3. Today, she is feeling much better. Her lightheadedness resolved. She is tolerating her diet. She is ambulating independently and pain is well controlled with oral analgesics. CHE drain with minimal serosanguineous output. Discussed with Dr. Carrero and patient is stable for discharge today. We will remove CHE drain prior to discharge. Status at Discharge Functional status at discharge: independent ambulation Overall status at discharge: patient is progressing back to baseline Time Spent with Patient Time attestation: Total time spent providing and/or coordinating discharge services: Time spent: Greater than 30 minutes Exam Const: General: comfortable, no acute distress and awake Orientation/consciousness: patient oriented x3 GI: Inspection: non-distended, incision (Dry and kala intact, no erythema) and other (CHE drain with scant serosanguineous drainage) GI Palp: Yes Soft to palpation and Yes Tenderness to palpation present (GI) (incisional) Auscultation: normal bowel sounds Neuro: General: moves all extremities and no focal motor deficits Extrem: General: no calf tenderness and no edema Psych: Mental Status: mental status grossly normal Insight: Good insight present (Psych) DS: Data Data Completed and Pending Completed studies during hospitalization: Pending at discharge 10/23/22 09:06 Surgical [PTH] Routine Labs on day of discharge: Labs from last 24 hours 10/25/22 12:13 WBC 6.9 RBC 3.66 L Hgb 11.9 L Hct 38.7 MCV 105.7 H MCH 32.5 MCHC 30.7 L RDW 12.8 Plt Count 265 MPV 9.5 Sodium 135 L Potassium 4.3 Chloride 103 Carbon Dioxide 29 Anion Gap 3 L BUN 10 Creatinine 0.60 L Estim Creat Clear Calc 93 Estimated GFR > 60 Glucose 108 Calcium 8.3 L Magnesium 2.2 Procedures/Treatments: Procedures Operation Date: 10/23/22 07:30 Actual Procedure Side Surgeon p Open Incarcerated Incisional Hernia Repair with Mesh, Bilateral Component Separation Not Applicable Matthew Carrero, DO Discharge Plan Discharge Attending physician on discharge: Matthew Carrero Discharging Clinician: Karena Sunshine Anticipated Discharge Date/Time: 10/26/22 11:38 Patient Disposition: Home, Self-Care Activity: no driving and other - see discharge instructions Diet: heart healthy Wound Care Instructions: change dressing daily Discharge Instructions: DISCHARGE INSTRUCTION SHEET FOR HERNIA, GALLBLADDER AND APPENDIX SURGERIES DR. CARRERO 1. May remove gauze dressi
== END 2022-10-26 13:15 | disposition home or self-care (01) | DRG 354 ==
LOC: ANH3MEDSUR 13:18
PROVIDERS: Admitting Provider Surgery; PCP Internal Medicine; Visit Provider Nurse Practitioner Family
PROC: 0WQF0ZZ Repair Abdominal Wall, Open Approach (ICD-10-PCS; principal; 2022-10-23 07:30)
DX: K43.0 Incisional hernia with obstruction, without gangrene (principal); Z68.41 Body mass index [BMI] 40.0-44.9, adult; K21.9 Gastro-esophageal reflux disease without esophagitis; I10 Essential (primary) hypertension; E66.01 Morbid (severe) obesity due to excess calories; G47.33 Obstructive sleep apnea (adult) (pediatric); F32.A Depression, unspecified; F41.9 Anxiety disorder, unspecified; Z96.659 Presence of unspecified artificial knee joint; Z98.84 Bariatric surgery status
CPT/HCPCS: 36415; 80048; 83735; 85027; 88302; A9270; C1781; J0690; J1100; J1170; J1650; J1885; J2250; J2405; J2704; J3010; J7120

== ENCOUNTER 2022-11-09 09:39 | Outpatient (CLI) | payer MEDICARE, OTHER, SELFPAY ==
[2022-11-09 09:56] LABS: Appearance Urine Clear (Clear); Bilirubin Urine Negative (Negative); Blood Urine Negative (Negative); Color Urine Light Yellow (Yellow); Glucose Urine UA Negative (Negative); Ketones Urine Negative (Negative); Leukocyte Esterase Ur Negative LEU/UL (Negative); Nitrate Urine Negative (Negative); Protein Urine Negative (Negative); Urobilinogen Urine 0.2 mg/dL (0.2-1.0)
[2022-11-09 09:59] LABS: Add Urine Microscopic? NO
== END 2022-11-09 09:40 | disposition home or self-care (01) ==
LOC: CHSLAB 09:41
PROVIDERS: PCP Internal Medicine; Visit Provider Surgery
DX: R30.0 Dysuria (principal)
CPT/HCPCS: 81003

== ENCOUNTER 2022-12-18 07:55 | Outpatient (CLI) | payer MEDICARE, OTHER, SELFPAY ==
--- NOTE | ~2022-12-18 | CT_ITS ---
CT of the Abdomen: Indication: Left lower quadrant pain, prior hernia repair Technique: 2.5 mm axial scans were obtained through the abdomen following intravenous administration of 100 cc of Omnipaque 350. Dose reduction technique was used on this scan by utilizing automated ex posure control and iterative reconstruction technique. The dose-length product (DLP) was 906.24 mGy-c m. COMPARISON: 09/04/2022 Findings: Scans through the lung bases are unremarkable. The liver, spleen, pancreas, adrenals and kidneys are within normal limits. Cholecystectomy clips are present. No evidence of aortic aneurysm. No lymphadenopathy. Postoperative changes of the stomach noted. No bowel obstruction or ascites seen. Probable small sero ma noted in the anterior subcutaneous soft tissues at the midline. Impression: Status post ventral hernia repair since the prior exam. Probable small postoperative seroma in the an terior subcutaneous soft tissues at the midline. Reviewed, dictated and finalized at [facility]. PER COUNTERS Impression: Status post ventral hernia repair since the prior exam. Probable small postoper ative seroma in the anterior subcutaneous soft tissues at the midline.
--- NOTE | ~2022-12-18 | XR_ITS ---
Thoracic spine: Clinical Indication: Back pain AP and lateral views were performed. No fracture is seen. There is normal alignment of the vertebrae. There are mild degenerative disc ch anges throughout the thoracic spine. There are anterior and lateral marginal osteophytes. Paravertebr al soft tissues appear normal. Impression: Mild degenerative spondylosis of the thoracic spine. No fracture or subluxation. Reviewed, dictated and finalized at location . [employer] Impression: Mild degenerative spondylosis of the thoracic spine. No fracture or subluxation.
[2022-12-18 08:10] LABS: Basophils Absolute Auto 0.02 K/mm3 (0.00-0.10); Basophils Percent Auto 0.4 % (0.0-1.0); Eosinophils Absolute Auto 0.12 K/mm3 (0.02-0.50); Eosinophils Percent Auto 2.2 % (1.0-6.0); Hematocrit 41.8 % (35.0-42.0); Hemoglobin 13.2 g/dL (11.7-13.8); Immature Granulocyte Absolute 0.02 K/mm3 (0.00-0.00); Immature Granulocyte Percent A 0.4 % (0.0-0.0); Lymphocytes Absolute Auto 2.31 K/mm3 (1.10-4.50); Lymphocytes Percent Auto 42.7 % (18.0-42.0); Mean Corpuscular HGB Conc 31.6 g/dL (32.0-36.0); Mean Corpuscular Hemoglobin 30.3 pg (27.0-31.0); Mean Corpuscular Volume 96.1 fL (78.0-102.0); Monocytes Absolute Auto 0.55 K/mm3 (0.10-0.90); Monocytes Percent Auto 10.2 % (2.0-11.0); Neutrophils Absolute Auto 2.4 K/mm3 (1.7-7.2); Neutrophils Percent Auto 44.1 % (50.0-70.0); Platelet Count Result 312 K/mm3 (150-420); Red Blood Count 4.35 M/mm3 (4.20-5.40); Red Cell Distribution Width 12.7 % (11.6-14.4); White Blood Count 5.4 K/mm3 (4.8-10.8)
[2022-12-18 08:25] LABS: Alanine Aminotransferase 21 U/L (14-59); Albumin Level 3.1 g/dL (3.4-5.0); Alkaline Phosphatase 129 U/L (46-116); Anion Gap 10 mmol/L (8-16); Aspartate Amino Transferase 20 U/L (15-37); Bilirubin,Total 0.3 mg/dL (0.00-1.00); Blood Urea Nitrogen 13 mg/dL (7-18); CRP 1.5 mg/dL (0.0-0.9); Calcium 9.1 mg/dL (8.5-10.1); Carbon Dioxide 26 mmol/L (21-32); Chloride 105 mmol/L (98-108); Estimated Glomerular Filt Rate > 60; Glucose 94 mg/dL (70-99); Osmolality Calculated 292 mOsm/kg (285-295); Potassium 4.5 mmol/L (3.5-5.1); Sodium 141 mmol/L (136-145); Total Protein 6.9 g/dL (6.4-8.2)
== END 2022-12-18 07:56 | disposition home or self-care (01) ==
LOC: CHSIMG 07:57
PROVIDERS: PCP Internal Medicine; Visit Provider Internal Medicine
DX: R10.12 Left upper quadrant pain (principal); Z98.890 Other specified postprocedural states; M43.04 Spondylolysis, thoracic region
CPT/HCPCS: 36415; 72072; 74160; 80053; 85025; 86140; Q9967

== ENCOUNTER 2023-01-19 07:58 | Outpatient (CLI) | payer MEDICARE, OTHER, SELFPAY ==
--- NOTE | ~2023-01-19 | MM_ITS ---
EXAMINATION: MM screening [facility] BI w [place] HISTORY: Screening mammogram TECHNIQUE: Craniocaudal and mediolateral oblique 3-D tomosynthesis images were obtained and synthetic 2-D images were generated. CAD analysis was submitted and interpreted. COMPARISON: 01/18/2022, 01/13/2021, 11/25/2019, 11/19/2018 BREAST PARENCHYMAL COMPOSITION: There are scattered areas of fibroglandular density. FINDINGS: No suspicious mass, calcification, or architectural distortion are identified in either jun ast to suggest malignancy. There has been no suspicious interval change. IMPRESSION: 1. No mammographic evidence of malignancy. 2. Recommend routine screening mammography in one year. BI-RADS Category 1: Negative Reviewed, dictated and finalized at location A. AG APPLIQUER
== END 2023-01-19 07:59 | disposition home or self-care (01) ==
LOC: CHSIMG 08:00
PROVIDERS: PCP Internal Medicine; Visit Provider Internal Medicine
DX: Z12.31 Encounter for screening mammogram for malignant neoplasm of breast (principal)
CPT/HCPCS: 77063; 77067

== ENCOUNTER 2023-10-03 08:56 | Outpatient (CLI) | payer MEDICARE, OTHER, SELFPAY ==
[2023-10-03 09:05] VITALS: BP 128/51; PULSE 88; RESP 18; TEMP 35.8
[2023-10-03 09:18] VITALS: BMI 42.3
[2023-10-03] MEDS: ZOLEDRONIC ACID 5 MG/100 ML 100 ML 400 MG IVPB (09:26)
[2023-10-03 09:52] VITALS: BP 130/59; PULSE 68; RESP 14
--- NOTE | 2023-10-03 09:56 | PC.NURSE ---
Patient tolerated yearly IV Reclast infusion well. see Patient care notes/MAR.
== END 2023-10-03 08:57 | disposition home or self-care (01) ==
PROVIDERS: PCP Internal Medicine; Visit Provider Internal Medicine
DX: M81.0 Age-related osteoporosis without current pathological fracture (principal)
CPT/HCPCS: 96374; J3489

== ENCOUNTER 2024-01-21 08:04 | Outpatient (CLI) | payer MEDICARE, OTHER, SELFPAY ==
--- NOTE | ~2024-01-21 | MM_ITS ---
EXAMINATION: MM screening [facility] BI w [place] HISTORY: Screening TECHNIQUE: Craniocaudal and mediolateral oblique 3-D tomosynthesis images were obtained and synthetic 2-D images were generated. CAD analysis was submitted and interpreted. COMPARISON: Comparison to multiple prior studies sequentially, with oldest reviewed study dated 03/2015. BREAST PARENCHYMAL COMPOSITION: Not dense: There are scattered areas of fibroglandular density. FINDINGS: There is no evidence of suspicious mass, calcification, or architectural distortion to sugg est malignancy in either breast. There has been no suspicious interval change. IMPRESSION: 1. No mammographic evidence of malignancy. 2. Recommend routine screening mammography in one year. 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
== END 2024-01-21 08:05 | disposition home or self-care (01) ==
LOC: CHSIMG 08:05
PROVIDERS: PCP Internal Medicine; Visit Provider Internal Medicine
DX: Z12.31 Encounter for screening mammogram for malignant neoplasm of breast (principal)
CPT/HCPCS: 77063; 77067

== ENCOUNTER 2024-09-24 11:41 | Outpatient (CLI) | payer MEDICARE, OTHER, SELFPAY ==
--- NOTE | ~2024-09-24 | DEXA_ITS ---
Bone Density Report Name: MARY FORTUNE Age: 69 Sex: Female Ethnicity: White Date of : 1955 Indication: postmenopausal; screening for osteoporosis; height loss; prior fracture; hysterectomy; Referring Provider: Renny Bales Study: Bone densitometry was performed. Exam Date: September 24, 2024 Accession number: [id number] Bone Density: Region BMD T-score Z-score Classification AP Spine(L1-L4) 0.946 -0.9 1.1 Normal Femoral Neck (Left) 0.638 -1.9 -0.2 Osteopenia Total Hip (Left) 0.901 -0.3 1.1 Normal Femoral Neck (Right) 0.658 -1.7 0.0 Osteopenia Total Hip (Right) 0.898 -0.4 1.0 Normal Femoral Neck Mean 0.648 -1.8 -0.1 Osteopenia Total Hip Mean 0.899 -0.3 1.1 Normal World Health Organization criteria for BMD impression classify patients as: Normal (T-score at or above -1.0), Osteopenia (T-score between -1.0 and -2.5), or Osteoporosis (T-score at or below -2.5). 10-year Fracture Risk: FRAX not reported because: Treated for osteoporosis Clinical Information Provided by Patient: Has had a low trauma fracture Is being treated for osteoporosis Has used the following medications: Reclast (i.e. zoledronate), Vitamin D, Calcium Has the following medical conditions: Hysterectomy Patient maximum height was 64 Menopause Age: 41 No regular weight bearing exercise Does not regularly consume dairy products Drinks caffeinated beverages Onset of menses at age 14 Number of children 2 Impression: The patient has low bone mass, based on the Left Femoral Neck T-score. The patient has risk factors, including: previous fracture. Discussion: It is important to ask patients whether they are taking their medications and to encourage continued and appropriate compliance with their osteoporosis therapies to reduce fracture risk. It is also important to review their risk factors and encourage appropriate calcium and vitamin D intakes, exercise, fall prevention and other lifestyle measures. Follow-Up: Consider a repeat BMD and Vertebral Fracture Assessment (VFA) exam in 2 years or sooner if medically necessary, to reassess this patient's status. Reported by: STARLA on 09/24/2024 12:07:00 PM. Reviewed, dictated and finalized at location A.
--- OUTSIDE RECORDS SUMMARY | 2024-09-24 11:44 | XMS_ITS | Clinical Summary ---
Author Organization [facility] Address [address] [place] [address] Care Team Providers Care Research Analyst Name Role Phone Renny Thomas MD Primary Care Provider [phone] Allergies Active Allergy Reactions Criticality Noted Date Comments Celecoxib Unknown 04/23/2019 Meloxicam Other (see comment) 04/23/2019 Abdominal pain Medications potassium chloride CR 20 MEQ tablet Take 3 tablets by mouth daily. Active Multiple Vitamin (MULTI-VITAMIN DAILY OR) Take 1 tablet by mouth daily. Active DULoxetine HCl 60 MG Capsule Delayed Release Sprinkle Take 1 capsule by mouth daily. Active vitamin D2, ergocalciferol, 08600 UNITS capsule Take 50,000 Units by mouth 5 (five) times a week. Active Biotin 5 MG CapIndications: total of 8mg twice daily Take 8 mg by mouth 2 (two) times daily. Indications: total of 8mg twice daily Active Zinc 50 MG Tab Take 1 tablet by mouth 2 (two) times daily. Active FERROUS SULFATE ORIndications:w ith 400mg Vitamin C1 Take 60 mg by mouth daily with breakfast. Indications: with 400mg Vitamin C1 Active magnesium oxide 400 (241.3 Mg) MG tablet Take 400 mg by mouth daily. Active vitamin D3, cholecalciferol , 1000 UNIT Tab tablet Active Copper 5 MG Tab Take by mouth daily. Active fish oil (OMEGA-3 FATTY ACID) 1000 MG Cap capsule Active omeprazole (PRILOSEC) 40 MG capsule Take 40 mg by mouth. Active venlafaxine XR (EFFEXOR-XR) 150 MG 24 hr capsule Take 150 mg by mouth. Active Vitamin A 7.5 MG (67836 UT) Cap Take 25,000 Units by mouth 3 (three) times daily. Active Calcium Citrate (CITRACAL OR) Active Multiple Vitamins-Minera ls (PRESERVISION AREDS 2) Cap Active famotidine (PEPCID) 40 MG tablet Take by mouth 2 (two) times daily. Active levothyroxine (SYNTHROID) 175 MCG tablet Take 175 mcg by mouth daily. Active Active Problems Problem Noted Date Diagnosed Date BMI 40.0-44.9, adult 04/23/2019 Vitamin D deficiency 04/23/2019 Incisional hernia without obstruction or gangren e 04/23/2019 Bariatric surgery status 04/23/2019 Depression with anxiety Generalized osteoarthritis Hypothyroidism Urinary incontinence Family History Medical History Relation Comments Coronary artery disease Father Prostate Cancer Father Diabetes Maternal Grandmother Thyroid Maternal Grandmother Thyroid Mother Thyroid Sister Relation Status Comments Father Maternal Grandmother Mother Sister Social History Tobacco Use Types Packs/Day Years Used Date Smoking Tobacco: Never Smokeless Tobacco: Never Tobacco Cessation:Counseling Given: Not Answered Alcohol Use Standard Drinks/Week Comments Never 0 (1 standard drink = 0.6 oz pur e alcohol) Comments Unknown Sex and Gender Information Value Date Recorded Sex Assigned at Female 04/23/2019 11:25 AM CDT Legal Sex Female 10:27 AM CDT Gender Identity Female 04/23/2019 11:25 AM CDT Sexual Orientation Not on file Last Filed Vital Signs Vital Sign Reading Time Taken Comments Blood Pressure 129/64 01/12/2022 12:01 PM GARMENT CUTTER Pulse 64 01/12/2022 12:01 PM GARMENT CUTTER Temperature 36.3 C (97.3 F) 01/12/2022 11:30 AM GARMENT CUTTER Respiratory Rate 18 01/12/2022 12:01 PM GARMENT CUTTER Oxygen Saturation 92% 01/12/2022 12:01 PM GARMENT CUTTER Inhaled Oxygen Concentration - - Weight 115.7 kg (255 lb) 01/02/2022 12:22 PM GARMENT CUTTER Height 157.5 cm (5' 2) 01/02/2022 12:22 PM GARMENT CUTTER Body Mass Index 46.64 01/02/2022 12:22 PM GARMENT CUTTER Plan of Treatment Health Maintenance Due Date Last Done Comments Hepatitis C 1974 Mammogram Screening 1996 Pneumococcal Vaccine: 50+ Years (1 of 1 - PCV) 2006 Zoster Vaccines (2 of 3) 07/31/2013 06/05/2013 RSV Immunization or 60+ Years (1 - Risk 60-74 years 1-dose series) 2016 Annual Medicare Wellness Visit 2021 COVID-19 Vaccine (4 - 2023-2 5 season) 2023 02/07/2021, 05/11/2020, 04/20/2020 DTaP, Tdap and Td Vaccines ( 2 - Td or Tdap) 04/04/2029 04/04/2019 Colorectal Cancer Screening Colonoscopy (10 Years) 01/13/2032 01/12/2022, 01/12/2022 Dexa Scan (General) Completed 08/09/2021 Meningococcal B Vaccine Aged Out No l onger eligible based on patient's age to complete this topic Meningococcal Vaccine Aged Out No haley kenneth eligible based on patient's age to complete this topic RSV Immunizations Under 20 Months Aged Out No longer eligible b ased on patient's age to complete this topic Procedures Procedure Name Priority Date/Time Associated Diagnosis Comments COLONOSCOPY Routine 01/12/2022 10:13 AM GARMENT CUTTER BONE DENSITY/DEXA Routine 08/09/2021 10: 46 AM CDT Screening due from Last 3 Months or Most Recently Relevant to Health Maintenance Results * BONE DENSITY/DEXA (08/09/2021 10:46 AM CDT) Anatomical Region Laterality Modality Bone Bone Density 08/10/2021 1:15 PM CDT Impressions 08/10/2021 1:17 PM CDT Impression: BMD measured at right femoral neck at WHO category level of osteoporosis. BMD measured at left femoral neck and both total hips at level of osteopenia. Ordered By: RENNY THOMAS Interpreted By: Blanco Ritter MD, 08/10/2021 1:15 PM Narrative 08/10/2021 1:17 PM CDT Examination: DEXA Bone densitometry EXAM DATE: 08/09/2021 10:46 AM Clinical history: Postmenopausal. Prior fracture. Calcium supplementation. Vitamin D use. Prior hysterectomy. History of hypothyroidism. Dairy product consumption. Technique: DEXA bone minimal density evaluation was performed in the AP projection over the lumbar spine and over both hips in the AP projection utilizing standard imaging techniques. Assessment: The BMD measured at the femur total left is 0.795 g/cm? with a T-score of -1.2 and a Z-Score of 0.0. The patient is considered osteopenic according to World Health Organization (WHO) criteria. Bone density is between 10 and 25% below young normal. Fracture risk is moderate. Treatment is advised. The BMD measured at the left femoral neck is 0.607 g/sq cm resulting in a T score of -2.2 and a Z score of -0.7, values at the WHO category level of osteopenia. The BMD measured at the femur total right is 0.776 g/cm? with a T-score of -1.4 and aZ-Score of -0.1. The patient is considered osteopenic according to World Health Organization (WHO) criteria. Bone density is between 10 and 25% below young normal. Fracture risk is moderate. Treatment is advised. The BMD measured at the right femoral neck is 0.547 g/sq cm resulting in a T score of -2.7 and a Z score of -1.2, values at the WHO category level of osteoporosis. FRAX results: 10 year probability of major osteoporotic fracture 19% and of hip fracture 3.9%. Recommendations: All patients should ensure an adequate intake of dietary calcium and vitamin D. The NOF recommend adults under the age of 50 need 1000 mg of calcium and 400-800 IU of vitamin D daily. Effective therapy for the prevention and treatment of osteoporosis include biphosphonates. Follow-up: People with diagnosed cases of osteoporosis or at high risk for fracture should have regular bone mineral density test. For patients eligible for Medicare, routine testing is allowed once every 2 years. Testing frequency can be increased to one year for patients who have rapidly progressing disease, those who are receiving or discontinuing medical therapy to restore bone mass, or have additional risk factors. Based on these results, a followup exam is recommended in no earlier than 2 years for routine follow-up. As early as 1 year to assess efficacy of new medication therapy for treatment of osteoporosis. Procedure Note Blanco Ritter MD - 08/10/2021 Examination: DEXA Bone densitometry EXAM DATE: 08/09/2021 10:46 AM Clinical history: Postmenopausal. Prior fracture. Calcium supplementation.Vitamin D use. Prior hysterectomy. History of hypothyroidism. Dairyproduct consumption. Technique: DEXA bone minimal density evaluation was performed in the APprojection over the lumbar spine and over both hips in the AP projectionutilizing standard imaging techniques. Assessment: The BMD measured at the femur total left is 0.795 g/cm? with a T-score of-1.2 and a Z-Score of 0.0. The patient is considered osteopenicaccording to World Health Organization (WHO) criteria. Bone density isbetween 10 and 25% below young normal. Fracture risk is moderate.Treatment is advised. The BMD measured at the left femoral neck is 0.607 g/sq cm resulting in aT score of -2.2 and a Z score of -0.7, values at the WHO category level ofosteopenia. The BMD measured at the femur total right is 0.776 g/cm? with a T-score of-1.4 and aZ-Score of -0.1. The patient is considered osteopenicaccording to World Health Organization (WHO) criteria. Bone density isbetween 10 and 25% below young normal. Fracture risk is moderate.Treatment is advised. The BMD measured at the right femoral neck is 0.547 g/sq cm resulting in aT score of -2.7 and a Z score of -1.2, values at the WHO category level ofosteoporosis. FRAX results: 10 year probability of major osteoporotic fracture 19% andof hip fracture 3.9%. Recommendations: All patients should ensure an adequate intake of dietary calcium andvitamin D. The NOF recommend adults under the age of 50 need 1000 mg ofcalcium and 400-800 IU of vitamin D daily. Effective therapy for theprevention and treatment of osteoporosis include biphosphonates. Follow-up: People with diagnosed cases of osteoporosis or at high risk for fractureshould have regular bone mineral density test. For patients eligible forMedicare, routine testing is allowed once every 2 years. Testing frequencycan be increased to one year for patients who have rapidly progressingdisease, those who are receiving or discontinuing medical therapy torestore bone mass, or have additional risk factors. Based on these results, a followup exam is recommended in no earlier than2 years for routine follow-up. As early as 1 year to assess efficacy ofnew medication therapy for treatment of osteoporosis. Impression: BMD measured at right femoral neck at WHO category level ofosteoporosis. BMD measured at left femoral neck and both total hips at level ofosteopenia. Ordered By: RENNY THOMAS Interpreted By: Blanco Ritter MD, 08/10/2021 1:15 PM Renny Thomas MD DEXA Final Result from Last 3 Months or Most Recently Relevant to Health Maintenance Insurance MEDICARE [facility] Care Teams Research Analyst Relationship Specialty Start Date End Date Renny Thomas MD [address] [place] [address] PCP - General INTERNAL MEDICINE 04/22/19
--- OUTSIDE RECORDS SUMMARY | 2024-09-24 11:44 | XMS_ITS | Clinical Summary ---
Author Organization [facility] [employer] Address [address] [place] [address] Care Team Providers Care Shot Bagger Name Role Phone Daniel Grant MD Unavailable [phone] Renny Bales MD Primary Care Provider [phone] Source Comments [facility],non-owned Affiliates and Associated Physician Practices is amultiple site organization consisting of ambulatory clinics and hospital sitesin [place], [place], [place] and [place]. This disclosure is being madepursuant to the Care Everywhere program and may not contain all information available regarding this patient. Last updated 17.[facility] Allergies Active Allergy Reactions Criticality Noted Date Comments Celecoxib Urticaria High 01/08/2012 Medications * Be aware that medications may not be up to date on this document. Alwaysverify current medications with the patient. venlafaxine XR 24hr (EFFEXOR XR) 150 MG capsule Take 150 mg by mouth daily with breakfast. Active omeprazole (PRILOSEC) 40 MG capsule Take 40 mg by mouth daily before breakfast. Instructed to take AM of surgery Active levothyroxine (SYNTHROID) 200 MCG tablet Take 200 mcg by mouth daily before breakfast. Active levothyroxine (SYNTHROID) 25 MCG tablet Take 25 mcg by mouth daily before breakfast. Instructed to take AM of surgery Active potassium chloride SA (K-DUR) 20 MEQ tablet Take 60 mEq by mouth once daily after breakfast. Active Multiple Vitamins-Minera ls (OCUVITE ADULT 50+ PO) Take by mouth once daily. Active multivitamin daily (THERAGRAN) tablet Take 1 Tab by mouth daily with food. Active MAGNESIUM CITRATE PO Take 500 mg by mouth once daily. Active CALCIUM CITRATE PO Take 2,070 mg by mouth 3 times daily with meals. Active Zinc 50 MG TABS Take by mouth once daily. Active ferrous sulfate EC (FERROUS SULFATE) 324 (65 FE) MG TBEC tablet Dissolve 324 mg under the tongue once daily. Active Copper 5 MG TABS Take by mouth once daily. Active vitamin D, cholecalciferol , 1000 UNITS tablet Take 5,000 Units by mouth once daily. Active oxyCODONE-aceta minophen (PERCOCET) 10-325 MG tablet Take 0.5-1 Tabs by mouth every 6 hours as needed for Pain. 90 Tab 0 5 Active traMADol (ULTRAM) 50 MG tablet Take 1 Tab by mouth every 6 hours as needed for Pain. 50 Tab 0 5 Active hydrocodone-nickolas taminophen (NORCO) 5-325 MG tablet Take 1-2 Tabs by mouth every 6 hours as needed for Pain. 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 Gender Identity Not on file Sexual Orientation Not on file Last Filed Vital Signs Vital Sign Reading Time Taken Comments Blood Pressure 119/56 05/01/2014 8:40 AM CDT Pulse 85 05/01/2014 10:43 AM CDT irregular Temperature 36.4 C (97.6 F) 05/01/2014 8:40 AM CDT Respiratory Rate 16 05/01/2014 8:40 AM CDT Oxygen Saturation 93% 05/01/2014 8:40 AM CDT Inhaled Oxygen Concentration - - Weight 103.1 kg (227 lb 6.4 oz) 04/29/2014 9:47 AM CDT Height 162.6 cm (5' 4) 04/29/2014 9:47 AM CDT Body Mass Index 39.03 04/29/2014 9:47 AM CDT Plan of Treatment Health Maintenance Due Date Last Done Comments BONE DENSITY TESTING 1955 COLOGUARD (AGES 45-75) - COL ON CA SCREENING 1955 COLON MONITORING 1956 COLONOSCOPY - COLON CA SCREENING 1956 CT COLONOGRAPHY - COLON CA SCREENING 1955 Colorectal Cancer Screening 1955 FIT - COLON CA SCREENING 1956 FLEX SIG - COLON CA SCREENING 1956 LIPID TESTING 1955 MAMMOGRAM 1955 MEDICARE AWV 12 MONTHS 1955 HEPATITIS C SCREENING 05/30/1974 DTAP/TDAP/TD VACCINES (1 - Tdap) 06/04/1975 PNEUMOCOCCAL VACCINE 50+ (1 of 1 - PCV) 2006 ZOSTER VACCINE (1 of 2) 2006 COVID-19 VACCINE (1 - 2023-2 5 season) 2023 DEPRESSION SCREENING 02/13/2024 INFLUENZA VACCINE (#1) 2024 Respiratory Syncytial Virus (RSV) Vaccine Pt: or over 60 yrs (1 - 1-dose 75+ series) 06/04/2031 HEPATITIS B VACCINE Aged Out No longe r eligible based on patient's age to complete this topic HIB VACCINE Aged Out No longer eligi ble based on patient's age to complete this topic HPV VACCINE Aged Out No longer eligi ble based on patient's age to complete this topic MENINGOCOCCAL (Group B) VACC INE SHARED DECISION-MAKING Aged Out No longer eligibl e based on patient's age to complete this topic MENINGOCOCCAL GROUPS A/C/Y/W VACCINE Aged Out No longer eligible b ased on patient's age to complete this topic Medical Devices Implanted Type Area 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 Supervisor Device Identifier Shelf Expiration Date Model / Serial / Lot Favio Bone [place] Hv Implanted:Qty: 1 on 04/29/2014 by Daniel Grant MD at [facility] Left: [employer] 01/12/2016 [id number] / / [id number] Tibial I Beam Fix Bar 71mm Implanted:Qty: 1 on 04/29/2014 by Daniel Grant MD at [facility] Left: [employer]nee [employer] 03/14/2024 [id number] / / [id number] Butn Lis Arcom Wire Polyeth Xsm 28 X 8 Implanted:Qty: 1 on 04/29/2014 by Daniel Grant MD at [facility] Left: [employer]nee [employer] 03/14/2019 [id number] / / [id number] Ins Kn Vangurd Fem Cocr L-Intlok 65.0mm Implanted:Qty: 1 on 04/29/2014 by Daniel Grant MD at [facility] Left: [employer] 04/14/2024 [id number] / / [id number] Brdg Tib Mellissa Stbl 14mm X 71mm Implanted:Qty: 1 on 04/29/2014 by Daniel Grant MD at [facility] Left: [employer]nee [employer] 12/12/2018 [id number] / / [id number] Insurance MEDICARE Advance Directives * Full Code (Latest Code Status on File) Date Activated Date Inactivated Comments 04/29/2014 2:38 PM 05/01/2014 2:37 PM * FULL RESUSCITATION Date Activated Date Inactivated Comments 12/18/2011 12:01 PM 12/21/2011 1:22 PM Care Teams Shot Bagger Relationship Specialty Start Date End Date Renny Bales MD [address] [place] [address] PCP - General Internal Medicine 05/16/11 Daniel Grant MD Orthopedic Surgery 04/04/11
--- OUTSIDE RECORDS SUMMARY | 2024-09-24 11:45 | XMS_ITS | Clinical Summary ---
Author Organization [facility] Address [address] [place] [id number] Phone Care Team Providers Care Hvac Controls Technician Name Role Phone Renny Bales MD Primary Care Provider [phone] Allergies Active Allergy Reactions Criticality Noted Date Comments Celecoxib Rash,Urticaria,Hives High 01/08/2012 Meloxicam Other (See comments) Low 04/23/2019 Abdominal pain Medications biotin 10 mg tablet Take 1 tablet (10 mg total) by mouth 2 (two) times a day Active omeprazole (PriLOSEC) 40 mg capsule OMEPRAZOLE 40 MG ORAL CAPSULE DELAYED RELEASE 08/19/19 14 Active potassium chloride ER (potassium chloride ER) 20 mEq CR tablet Take 3 tablets (60 mEq total) by mouth daily Active vitamin A palmitate (A-25, vit A palmitate,) 7,500 mcg (25,000 unit) capsule Take by mouth Active omega-3 fatty acids-fish oil 300-1,000 mg capsule Take 2 capsules (2 g total) by mouth daily Active ferrous sulfate ER 324 mg (65 mg iron) EC tabletIndicatio ns:Iron Deficiency Anemia Take 65 mg by mouth Active magnesium oxide 400 mg magnesium capsule Take by mouth Active DULoxetine DR (CYMBALTA) 60 mg capsule Take 1 capsule (60 mg total) by mouth daily Active ergocalciferol (VITAMIN D) 50,000 unit capsule TAKE ONE CAPSULE BY MOUTH 5 TIMES A WEEK 02/02/20 22 Active buPROPion XL (WELLBUTRIN XL) 150 mg 24 hr tablet Take 1 tablet (150 mg total) by mouth daily 08/19/19 24 Active naltrexone (DEPADE) 50 mg tablet Take 1 tablet (50 mg total) by mouth daily 09/25/19 24 Active calcium citrate-vitamin D3 (CITRACAL WITH D) 315 mg-6.25 mcg (250 unit) per tablet Take 1 tablet by mouth 3 (three) times a day with meals Active vit C,E-Wx-gkxtw-dayami tein-zeaxan 250-90-40-1 mg capsule Take by mouth Active levothyroxine (SYNTHROID) 175 mcg tabletIndicatio ns:Hypothyroidi sm, unspecified type Take 1 tablet (175 mcg total) by mouth police superintendent before breakfast 90 tablet 3 05/22/19 25 Active etodolac (LODINE) 400 mg tablet Take 1 tablet (400 mg total) by mouth 2 (two) times a day 60 tablet 11 07/17/19 25 026 Active Additional Information Patient not taking.Reported on 08/27/2024 methylPREDNISol one (MEDROL DOSEPACK) 4 mg Dosepack TAKE 6 TABLETS ON DAY 1 DIRECTED ON PACKAGE AND DECREASE BY 1 TAB EACH DAY FOR A TOTAL OF 6 DAYS 07/15/19 25 Active onabotulinumtox in A (BOTOX) 200 unit recon soln Every 6 months for Urinary treatment. Active tirzepatide, weight loss, (Zepbound) 5 mg/0.5 mL solution vial Inject 0.5 mL (5 mg total) under the skin once a week 2 mL 3 09/11/19 25 Active tirzepatide, weight loss, (Zepbound) 2.5 mg/0.5 mL pen injector Inject 0.5 mL (2.5 mg total) under the skin every 7 days 2 mL 6 07/25/19 25 025 Discontinued Active Problems Problem Noted Date Diagnosed Date Shortness of breath 08/27/2024 Hx of bariatric surgery 03/06/2022 Overview (03/06/2022): Added automatically from request for surgery [id number] Morbid obesity 12/06/2021 Depression with anxiety 10/04/2021 Generalized osteoarthritis 10/04/2021 Urinary incontinence 10/04/2021 Vitamin D deficiency 04/23/2019 Incisional hernia without obstruction or gangren e 04/23/2019 Gastroesophageal reflux disease without esophagi tis 11/04/2015 Gastroparesis 11/04/2015 Status post total left knee replacement 07/08/19 15 Hypothyroidism 08/18/2013 Osteoarthrosis involving lower leg 06/22/2011 Overview (10/04/2021): 2015 IMO Updt Encounters Date Type Department Care Team Description 08/27/2024 1:15 PM CDT Office Visit [facility] at [address] [place] [address] Renee Crowe NP Chest pain, unspecified type (Primary Dx); Shortness of breath 07/18/2024 10:30 AM CDT Office Visit [facility] at [address] [place] [id number] Varinder Silva DO Class 3 severe obesity due to excess calories without serious comorbidity with body mass index (BMI) of 40.0 to 44.9 in adult (Primary Dx); Hypothyroidism, unspecified type from Last 3 Months Immunizations Immunization Administration Dates Next Due Influenza, Quadrivalent, Spl it, Intramuscular 11/10/2016,12/03/2015 Influenza, Quadrivalent, Spl it, Preservative Free, Intramuscular 11/24/2022,12/06/2021,12/13/2020,11/18,11/19/2018,11/16/2017 Influenza, Trivalent, High D ose, Split, Preservative Free, Intramuscular 01/03/2024 Influenza, Trivalent, Preser vative Free, Intramuscular 11/05/2014 Tdap 04/04/2019 ZOSTER LIVE 06/05/2013 Surgical History Surgery Date Site/Laterality Comments GASTROPLASTY DUODENAL SWITCH 02/12/2001 - 02/11/2002 REPLACEMENT TOTAL KNEE 02/12/2014 - 02/11/2015 Left UMBILICAL HERNIA REPAIR 02/13/1992 - 02/11/1993 HYSTERECTOMY 02/12/1995 - 02/12/1996 LUMBAR LAMINECTOMY 02/12/2013 - 02/11/2014 TOTAL KNEE ARTHROPLASTY 02/12/2011 - 02/12/2012 Right Medical History Medical History Date Comments Hypothyroidism GERD (gastroesophageal reflux disease) Hx of adenomatous colonic polyps Family History Medical History Relation Name Comments Hypertension Brother Prostate cancer Father Arthritis Mother Hypertension Mother Thyroid disease Mother Thyroid disease Sister 1 Arthritis Sister 2 Thyroid disease Son Relation Name Status Comments Brother Father Mother Alive Sister 1 Alive Sister 2 Alive Son Alive Social History Tobacco Use Types Packs/Day Years Used Date Smoking Tobacco: Never Smokeless Tobacco: Never Tobacco Cessation:Counseling Given: Not Answered AUDIT-C Answer Date Recorded Q1: How often do you have a drink containing alcohol? Never 06/02/2022 Q2: How many drinks containi ng alcohol do you have on a typical day when you are drinking? Patient does not drink Frequency of Binge Drinking Not on file 05/14 Personal Safety Answer Date Recorded Have you ever been in or are you currently in a harmful physical or emotional relationship or is someone making you feel afraid or unsafe? 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 Gender Identity Female 06/06/2021 3:12 PM CDT Sexual Orientation Not on file Obstetrics History Last Filed Vital Signs Vital Sign Reading Time Taken Comments Blood Pressure 111/74 08/27/2024 1:17 PM CDT Pulse 82 08/27/2024 1:17 PM CDT Temperature 36.7 C (98.1 F) 05/14/2024 10:09 AM CDT Respiratory Rate 18 08/27/2024 1:17 PM CDT Oxygen Saturation 97% 05/14/2024 10:09 AM CDT Inhaled Oxygen Concentration - - Weight 105.2 kg (232 lb) 08/27/2024 1:17 PM CDT Height 157.5 cm (5' 2) 08/27/2024 1:17 PM CDT Body Mass Index 42.43 08/27/2024 1:17 PM CDT Plan of Treatment Health Maintenance Due Date Last Done Comments Breast Cancer Screening-Mammogram 1955 Depression Screening 1955 Hepatitis C Screening 1956 Hepatitis B Screening 1974 Pneumococcal vaccine 65+ (1 of 1 - PCV) 2006 Zoster Vaccine (2 of 3) 07/31/2013 06/05/2013 Well Visit 65+ 2021 Colon Cancer Screening-Colonoscopy 11/15/20222012 Fall Risk Assessment 2023 06/02/2022 Osteoporosis Screening-Bone Density Scan 08/10/2023 08/09/2021 Covid-19 Vaccine (4 - 2023-2 5 season) 2023 02/07/2021, 05/11/2020, 04/20/2020 Influenza Vaccine (#1) 2024 4, 11/24/2022, 12/06/2021, Additional history exists DTaP/Tdap/Td Vaccine (2 - Td or Tdap) 04/04/2029 04/04/2019 Procedures Procedure Name Priority Date/Time Associated Diagnosis Comments COLONOSCOPY 11/15/2012 12:00 AM CDT from Last 3 Months or Most Recently Relevant to Health Maintenance Results * COLONOSCOPY (11/15/2012 12:00 AM CDT) Anatomical Region Laterality Modality Other Narrative 11/15/2012 12:00 AM CDT Ordered by an unspecified provider. Procedure Note Provider, MD Jeff - 11/15/2012 12:00 AM CDT PROCEDURE REPORT Patient: JANET RAI Account: [id number] Room No: : 1955 Patient Type: [facility] Attend.: Castillo Joy M.D. Admit Date: 11/15/2012 Dict.: Castillo Joy M.D. Disch. Date: 11/15/2012 NAME OF PROCEDURE: Colonoscopy. HISTORY AND PHYSICAL EXAMINATION Obese female. Lungs are clear. Cardiovascular exam is unremarkable. PROCEDURE Colonoscopy was performed with the Olympus video endoscope. The patientwas continued to be prepped by anesthesia. On digital exam, no abnormalitieswere palpable. We inserted the endoscope and advanced it through a verydifficult poorly prepped colon. We did get to the cecum and did our best to irrigateand suction through the entire length of the bowel. I could find no major abnormalities, nevertheless due to the prep and the tortuosity thepossibility of a vascular or a small polyp could have been missed. However, no abnormalities were seen. The patient tolerated the procedure withoutdifficulty. POSTOPERATIVE DIAGNOSES 1. Hemorrhoidal disease. 2. Poor prep. 3. Very tortuous colon. 4. No bleeding sites seen. Castillo Joy M.D. Liliya TD: 11/16/2012 06:46 CC: Dr. Bales Authenticated by Castillo Joy MD On 11/18/2012 08:37:59 AM us Historical Provider ENDOSCOPY PROCEDURES Keila l Result from Last 3 Months or Most Recently Relevant to Health Maintenance Insurance [facility] [place] [address] [place] [address] [employer] [place] [address] Care Teams Hvac Controls Technician Relationship Specialty Start Date End Date Renny Bales MD PCP - General Internal Medicine 09/30/21
--- OUTSIDE RECORDS SUMMARY | 2024-09-24 11:45 | XMS_ITS | Patient Health Record ---
Author Organization [facility] Address [address] [place], [place] [id number] Care Team Providers Care Lot Porter Name Role Phone Renny Bales Unavailable Unavailable Reason For Referral No Information Medications Medication SIG (Take, Route, Frequency, Duration) Notes Start Date End Date Status Medrol Dosepak ORAL Medrol DosepakOr iginal MedicationMedrol Dosepak *Reorder from [facility] [employer] for eRx and Interaction Alerts* 6 Active Nabumetone 500 MG Oral Tablet ORAL nabumetone 500 MG Oral TabletOriginal Medicationnabumetone 500 MG Oral Tablet *Reorder from [facility] for eRx and Interaction Alerts* 6 Active levothyroxine sodium 0.1 MG Oral Tablet ORAL levothyroxine sodium 0.1 MG Oral TabletOriginal Medicationlevothyroxine sodium 0.1 MG Oral Tablet *Reorder from [employer] for eRx and Interaction Alerts* 6 Active duloxetine 30 MG Delayed Release Oral Capsule ORAL duloxetine 30 MG Delayed Release Oral CapsuleOriginal Medicationduloxetine 30 MG Delayed Release Oral Capsule *Reorder from [employer] for eRx and Interaction Alerts* 6 Active copper gluconate 2 MG Oral Capsule ORAL copper gluconate 2 MG Oral CapsuleOriginal Medicationcopper gluconate 2 MG Oral Capsule *Reorder from [employer] for eRx and Interaction Alerts* 7 Active cholecalciferol 0.025 MG Oral Tablet ORAL cholecalciferol 0.025 MG Ora l TabletOriginal Medicationcholecalciferol 0.025 MG Oral Tablet *Reorder from [facility] for eRx and Interaction Alerts* 6 Active calcium carbonate 1250 MG / cholecalciferol 0.01 MG Oral Tablet ORAL calcium carbonate 1250 MG / cholecalciferol 0.01 MG Oral TabletOriginal Medicationcalcium carbonate 1250 MG / cholecalciferol 0.01 MG Oral Tablet *Reorder from [facility] for eRx and Interaction Alerts* 6 Active beta carotene 50831 UNT Oral Capsule ORAL beta carotene 27458 UNT Oral CapsuleOriginal Medicationbeta carotene 85437 UNT Oral Capsule *Reorder from [facility] for eRx and Interaction Alerts* 6 Active potassium chloride 8 MEQ Extended Release Oral Tablet [Klor-Con] ORAL potassium chloride 8 MEQ Extended Release Oral Tablet [Klor-Con]Original Medicationpotassium chloride 8 MEQ Extended Release Oral Tablet [Klor-Con] *Reorder from [employer] for eRx and Interaction Alerts* 6 Active {6 (ascorbic acid 100 MG / biotin 0.3 MG / calcium carbonate 100 MG / calcium pantothenate 7 MG / folic acid 1 MG / niacin 25 MG / pyridoxine hydrochloride 30 MG / riboflavin 5 MG / succinic acid 150 ORAL {6 (ascorbic acid 100 MG / biotin 0.3 MG / calcium carbonate 100 MG / calcium pantothenate 7 MG / folic acid 1 MG / niacin 25 MG / pyridoxine hydrochloride 30 MG / riboflavin 5 MG / succinic acid 150Original Me 7 Active pantoprazole 20 MG Delayed Release Oral Tablet ORAL pantoprazole 20 MG Delayed Release Oral TabletOriginal Medicationpantoprazole 20 MG Delayed Release Oral Tablet *Reorder from [employer] [employer] for eRx and Interaction Alerts* 6 Active metoclopramide 5 MG Disintegrating Oral Tablet ORAL metoclopramide 5 MG Disintegrating Oral TabletOriginal Medicationmetoclopramide 5 MG Disintegrating Oral Tablet *Reorder from [facility] for eRx and Interaction Alerts* 6 Active Plan Of Treatment No Information Insurance Providers Payer Name Payer Address Payer Phone Subscriber Number Group Number Insured Name Patient Relationship to Insured Coverage Start Date Coverage End Date [facility] ([facility]) ATTN CLAIMS [address] [place] [address] [id number] MARY FORTUNE Self - patient is the insured
--- OUTSIDE RECORDS SUMMARY | 2024-09-24 11:45 | XMS_ITS | Clinical Summary ---
Author Organization [facility] Address [address] [address] Phone Care Team Providers Care Grading Machine Feeder Name Role Phone Renny Bales MD Primary Care Provider [phone] Luciana Jonny Velazco DO Unavailable [phone] Allergies Active Allergy Reactions Criticality Noted Date Comments Celecoxib Unknown High 01/08/2012 Medications levothyroxine (SYNTHROID) 200 MCG Tablet Take 200 mcg by mouth daily. Active levothyroxine (SYNTHROID) 25 MCG Tablet Take 25 mcg by mouth daily. Reported on 06/14/2016 Active Multiple Vitamins-Minera ls (OCUVITE ADULT 50+ PO) Take by mouth daily. Active CALCIUM CARBONATE PO Take by mouth 3 times daily. Active vitamin A 57130 UNIT Capsule Take 25,000 Units by mouth 3 times daily. Active Zinc Sulfate (ZINC-220 PO) Take by mouth 2 times daily. Active magnesium gluconate (MAGONATE) 30 MG Tablet Take 1,000 mg by mouth daily. Active potassium chloride SA (K-DUR) 20 MEQ Tablet Controlled Release Take 20 mEq by mouth daily. Active Calcium Carbonate-Vitam in D (CALCIUM-VITAMI N D3 PO) Take by mouth daily. Active Multiple Vitamins-Minera ls (MULTIVITAMIN PO) Take by mouth daily. Active Ferrous Sulfate (IRON) 325 (65 FE) MG Tablet Take by mouth daily. Active COPPER PO Take by mouth daily. Active DULoxetine (CYMBALTA) [address] Particles 0 6 Active amitriptyline (ELAVIL) 25 MG Tablet Take 1 Tab by mouth nightly. 30 Tab 1 6 Active amitriptyline (ELAVIL) 25 MG Tablet Take 1 Tab by mouth nightly. 90 Tab 3 6 Active Calcium Citrate-Vitamin D (CALCIUM + D PO) Take by mouth. Activ e amitriptyline (ELAVIL) 50 MG Tablet Take 1 Tab by mouth nightly. 90 Tab 3 7 Active omeprazole (PRILOSEC) 40 MG CAPSULE DELAYED RELEASE Take 1 Cap by mouth 2 times daily. 30 Cap 3 7 Active polyethylene glycol (MIRALAX) Powder Use entire 255g bottle with 64oz of clear liquid as directed for colonoscopy prep. 255 g 0 7 Active polyethylene glycol (MIRALAX) Powder Use entire 255g bottle with 64oz of clear liquid as directed for colonoscopy prep. 255 g 0 7 Active Biotin (BIOTIN MAXIMUM STRENGTH) 10 MG Tablet Take 1 Tab by mouth 2 times daily. Active Cholecalciferol (VITAMIN D3) 1000 UNIT Tablet Take by mouth. Activ e [place]-3 1000 MG Capsule Take by mouth. Activ e Active Problems Problem Noted Date Diagnosed Date Gastroesophageal reflux disease without esophagi tis 11/04/2015 Gastroparesis 11/04/2015 Family History Medical History Relation Name Comments Diabetes Father Hypertension Father Prostate Cancer Father Hypothyroidism Mother Relation Name Status Comments Father Mother Social History Tobacco Use Types Packs/Day Years Used Date Smoking Tobacco: Never Alcohol Use Standard Drinks/Week Comments No 0 (1 standard drink = 0.6 oz pur e alcohol) Comments No Sex and Gender Information Value Date Recorded Sex Assigned at Not on file Legal Sex Female 7:07 PM CDT Gender Identity Not on file Sexual Orientation Not on file 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 Not on file Not on file Last Filed Vital Signs Vital Sign Reading Time Taken Comments Blood Pressure 120/84 06/14/2016 10:15 AM CDT Pulse 77 06/14/2016 10:15 AM CDT Temperature 36.7 C (98 F) 06/14/2016 10:15 AM CDT Respiratory Rate 16 06/14/2016 10:15 AM CDT Oxygen Saturation 96% 06/14/2016 10:15 AM CDT Inhaled Oxygen Concentration - - Weight 104.3 kg (230 lb) 06/14/2016 10:15 AM CDT Height 162.6 cm (5' 4) 06/14/2016 10:15 AM CDT Body Mass Index 39.48 06/14/2016 10:15 AM CDT Plan of Treatment Health Maintenance Due Date Last Done Comments Hepatitis C Virus (HCV) Screening 1955 TdaP Immunization 1955 Cologuard 2001 Colonoscopy 2001 Colorectal Cancer Screening 2001 Immunochemical Fecal Occult Blood 2001 Pneumococcal Immunization (5 0+ years) (1 of 1 - PCV) 2006 Zoster Immunization (1 of 2) 2006 SARS-COV-2 Immunization (1 - 2023- season) 2023 Influenza Immunization (#1) 2024 Respiratory Syncytial Virus (RSV) Immunization (Adult) (1 - 1-dose 75+ series) 06/04/2031 Hepatitis B Immunization Aged Out No longer eligible based on patient's age to complete this topic Human Papillomavirus (HPV) Immunization Aged Out No longer eligible b ased on patient's age to complete this topic Meningococcal Immunization (ACWY) Aged Out No longer eligible based on patient's age to complete this topic Rotavirus Immunization Aged Out No lo nger eligible based on patient's age to complete this topic Insurance [facility] Care Teams Grading Machine Feeder Relationship Specialty Start Date End Date Renny Bales MD [address] [place] [address] PCP - General Internal Medicine 05/13/15 Jonny Chowdhury DO [address] [place] [address] Gastroenterology 05/13/15
== END 2024-09-24 11:42 | disposition home or self-care (01) ==
PROVIDERS: PCP Internal Medicine; Visit Provider Internal Medicine
DX: Z78.0 Asymptomatic menopausal state (principal); M85.89 Other specified disorders of bone density and structure, multiple sites
CPT/HCPCS: 77080

== ENCOUNTER 2024-10-27 08:18 | Outpatient (CLI) | payer MEDICARE, OTHER, SELFPAY ==
[2024-10-27 08:35] VITALS: BP 122/60; PULSE 72; RESP 14; TEMP 36.6; O2SAT 98; BMI 42.9
[2024-10-27] MEDS: ZOLEDRONIC ACID 5 MG/100 ML 100 ML 400 MG IVPB (08:40)
--- OUTSIDE RECORDS SUMMARY | 2024-10-27 08:55 | XMS_ITS | Clinical Summary ---
Author Organization [facility] Address [address] [place] [address] Care Team Providers Care Executor Of Estate Name Role Phone Renny Thomas MD Primary Care Provider [phone] Allergies Active Allergy Reactions Criticality Noted Date Comments Celecoxib Unknown 04/23/2019 Meloxicam Other (see comment) 04/23/2019 Abdominal pain Medications potassium chloride CR 20 MEQ tablet Take 3 tablets by mouth daily. Active Multiple Vitamin (MULTI-VITAMIN DAILY OR) Take 1 tablet by mouth daily. Active DULoxetine HCl 60 MG Capsule Delayed Release Sprinkle Take 1 capsule by mouth daily. Active vitamin D2, ergocalciferol, 10155 UNITS capsule Take 50,000 Units by mouth [...] by mouth. Active Vitamin A 7.5 MG (39337 UT) Cap Take 25,000 Units by mouth [...] Comments Blood Pressure 129/64 01/12/2022 12:01 PM ORE MINER BLASTING Pulse 64 01/12/2022 12:01 PM ORE MINER BLASTING Temperature 36.3 C (97.3 F) 01/12/2022 11:30 AM ORE MINER BLASTING Respiratory Rate 18 01/12/2022 12:01 PM ORE MINER BLASTING Oxygen Saturation 92% 01/12/2022 12:01 PM ORE MINER BLASTING Inhaled Oxygen Concentration - - Weight 115.7 kg (255 lb) 01/02/2022 12:22 PM ORE MINER BLASTING Height 157.5 cm (5' 2) 01/02/2022 12:22 PM ORE MINER BLASTING Body Mass Index 46.64 01/02/2022 12:22 PM ORE MINER BLASTING Plan of Treatment Health Maintenance Due Date Last Done Comments Hepatitis C 1974 Mammogram Screening 1996 Pneumococcal Vaccine: 50+ Years (1 of 1 - PCV) 2006 Zoster Vaccines (2 of 3) 07/31/2013 06/05/2013 RSV Immunization or 60+ Years (1 - Risk 60-74 years 1-dose series) 2016 Annual Medicare Wellness Visit 2021 COVID-19 Vaccine (4 - 2024-2 6 season) 2024 02/07/2021, 05/11/2020, 04/20/2020 DTaP, Tdap and Td [...] Diagnosis Comments COLONOSCOPY Routine 01/12/2022 10:13 AM ORE MINER BLASTING BONE DENSITY/DEXA Routine 08/09/2021 10: 46 AM [...] Recently Relevant to Health Maintenance Insurance MEDICARE [facility] Care Teams Executor Of Estate Relationship Specialty Start Date End Date Renny Thomas MD [address] [place] [address] PCP - General INTERNAL MEDICINE 04/22/19
--- OUTSIDE RECORDS SUMMARY | 2024-10-27 08:55 | XMS_ITS | Encounter Summary ---
Author Organization [facility] Address [address] [place] [address] Care Team Providers Care Machine Clothing Worker Name Role Phone Renny Bales MD Primary Care Provider [phone] Encounter Details Date Type Department Care Team (Late st Contact Info) Description 10/14/2024 Results Follow-Up [facility] Director Of [facility] at [address] [place] [address] Renee Crowe, BRITTANY [address] [place] [address] [address] [place] [address] Transthoracic Echo (TTE) Complete W Doppler/CF Social History Tobacco Use Types Packs/Day Years Used Date Smoking Tobacco: Never Smokeless Tobacco: Never AUDIT-C Answer Date Recorded Q1: How often [...] on file 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 documented in this encounter Plan of Treatment Upcoming Encounters Date Type Department Care Team (Latest Contact Info) Description 11/06/2024 11:30 AM CDT Hospital Encounter [facility] Cardiac Catheterization [address] [place] [address] Hernandez Victoria MD [address] [place] [address] [place] [id number] Abnormal stress test; Chest pain, unspecified type 11/06/2024 11:30 AM CDT - 11/06/2024 12:35 PM CDT Surgery [facility] Cardiac Catheterization [address] [place] [address] Hernandez Victoria MD [address] [facility] [address] [place] [address] [place] [id number] LEFT HEART CATHETERIZATION WITH CORONARY ANGIOGRAPHY AND WITH OR WITHOUT LEFT VENTRICULOGRAM [id number] documented as of this encounter Visit Diagnoses Not on filedocumented in this encounter Care Teams Machine Clothing Worker Relationship Specialty Start Date End Date Renny Bales MD PCP - General Internal Medicine 09/30/21 documented as of this encounter
--- OUTSIDE RECORDS SUMMARY | 2024-10-27 08:55 | XMS_ITS | Clinical Summary ---
Author Organization [facility] Address [address] [place] [address] Care Team Providers Care Ad Copy Writer Name Role Phone Daniel Grant MD Unavailable [phone] Renny Bales MD Primary Care Provider [phone] Source Comments [facility],non-owned Affiliates and Associated Physician Practices is amultiple site organization consisting of ambulatory clinics and hospital sitesin [place], [place], [place]. This disclosure is being madepursuant to the Care Everywhere program and may not contain all information available regarding this patient. 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 Left: [employer] 01/12/2016 [id number] / / [id number] Ty Tibial I Beam Fix Bar 71mm Implanted:Qty: 1 on 04/29/2014 by Daniel Grant MD at [facility] Left: [employer] 03/14/2024 [id number] / / [id number] Butn Lis Arcom Wire Polyeth Xsm 28 X 8 Implanted:Qty: 1 on 04/29/2014 by Daniel Grant MD at [facility] Left: [employer] 03/14/2019 [id number] / / [id number] Ins Kn Vangurd Fem Cocr L-Intlok 65.0mm Implanted:Qty: 1 on 04/29/2014 by Daniel Grant MD at [facility] Left: [employer] 04/14/2024 [id number] / / [id number] Brdg Tib Mellissa Stbl 14mm X 71mm Implanted:Qty: 1 on 04/29/2014 by Daniel Grant MD at [facility] Left: [employer] 12/12/2018 [id number] / / [id number] Insurance MEDICARE Advance Directives * Full Code (Latest Code Status on File) Date Activated Date Inactivated Comments 04/29/2014 2:38 PM 05/01/2014 2:37 PM * FULL RESUSCITATION Date Activated Date Inactivated Comments 12/18/2011 12:01 PM 12/21/2011 1:22 PM Care Teams Ad Copy Writer Relationship Specialty Start Date End Date Renny Bales MD [address] [place] [address] PCP - General Internal Medicine 05/16/11 Daniel Grant MD Orthopedic Surgery 04/04/11
--- OUTSIDE RECORDS SUMMARY | 2024-10-27 08:56 | XMS_ITS | Clinical Summary ---
Author Organization [facility] Virtual Care Address [address] [place] [phone] Phone Care Team Providers Care Business Support Liaison Name Role Phone Renny Bales MD Primary Care Provider [phone] Allergies Active Allergy Reactions Criticality Noted Date [...] 5 TIMES A WEEK 02/02/20 22 Active calcium citrate-vitamin D3 (CITRACAL WITH D) 315 mg-6.25 mcg (250 unit) per tablet Take 1 tablet by mouth 3 (three) times a day with meals Active vit C,U-Vj-lkjsa-dayami tein-zeaxan 250-90-40-1 mg capsule Take by mouth Active levothyroxine (SYNTHROID) 175 mcg tabletIndicatio ns:Hypothyroidi sm, unspecified type Take 1 tablet (175 mcg total) by mouth carroter before breakfast 90 tablet 3 05/22/19 25 Active etodolac (LODINE) 400 mg tablet Take 1 tablet (400 mg total) by mouth 2 (two) times a day 60 tablet 11 07/17/19 25 026 Active methylPREDNISol one (MEDROL DOSEPACK) 4 mg Dosepack TAKE 6 TABLETS ON DAY 1 DIRECTED ON PACKAGE AND DECREASE BY 1 TAB EACH DAY FOR A TOTAL OF 6 DAYS 07/15/19 25 Active onabotulinumtox in A (BOTOX) 200 unit recon soln Every 6 months for Urinary treatment. Active sacubitriL-vals ipnky (ENTRESTO) 24-26 mg tabletIndicatio ns:chronic heart failure Take 1 tablet by mouth 2 (two) times a day 180 tablet 3 10/15/19 25 Active zinc gluconate 50 mg tablet Take by mouth 2 times daily Active calcium carbonate-vitam in D3 1500 mg (600 mg elemental) -200 units per tablet Take by mouth daily Active tirzepatide, weight loss, (Zepbound) 7.5 mg/0.5 mL solution vial Inject 0.5 mL (7.5 mg total) under the skin every 7 days 2 mL 3 10/25/19 25 Active buPROPion XL (WELLBUTRIN XL) 150 mg 24 hr tablet Take 1 tablet (150 mg total) by mouth daily 08/19/19 24 025 Discontinued naltrexone (DEPADE) 50 mg tablet Take 1 tablet (50 mg total) by mouth daily 09/25/19 24 025 Discontinued tirzepatide, weight loss, (Zepbound) 5 mg/0.5 mL solution vial Inject 0.5 mL (5 mg total) under the skin once a week 2 mL 3 09/11/19 25 025 Discontinued Active Problems Problem Noted Date Diagnosed Date Abnormal stress test 10/16/2024 Chest pain 10/16/2024 Shortness of breath 08/27/2024 Hx of bariatric surgery 03/06/2022 Overview (03/06/2022): Added automatically from request for surgery [id number] Morbid obesity 12/06/2021 Depression with anxiety 10/04/2021 Generalized osteoarthritis 10/04/2021 Urinary incontinence 10/04/2021 Vitamin D deficiency 04/23/2019 Incisional hernia without obstruction or gangren e 04/23/2019 Gastroesophageal reflux disease without esophagi tis 11/04/2015 Gastroparesis 11/04/2015 Status post total left knee replacement 07/08/19 15 Hypothyroidism 08/18/2013 Osteoarthrosis involving lower leg 06/22/2011 Overview (10/04/2021): 2015 IMO Updt Encounters Date Type Department Care Team Description 10/24/2024 12:55 PM CDT Lab [address] [phone] Abnormal stress test; Chest pain, unspecified type 10/24/2024 11:00 AM CDT Office Visit [facility] Diabetes Endocrine [facility] at [address] [phone] Varinder Silva DO Primary hypothyroidism (Primary Dx); Class 3 severe obesity due to excess calories without serious comorbidity with body mass index (BMI) of 40.0 to 44.9 in adult 10/14/2024 Orders Only [place] [facility] Director at [address] [place] [phone] Renee Crowe NP Chest pain, unspecified type (Primary Dx) 10/14/2024 Results Follow-Up [facility] at [address] [place] [phone] Renee Crowe NP Transthoracic Echo (TTE) Complete W Doppler/CF 10/08/2024 8:37 AM CDT - 10/08/2024 11:59 PM CDT Hospital Encounter [facility] [address] [place] [phone] Shortness of breath Discharge Disposition: Discharge to home or self care 10/08/2024 8:36 AM CDT - 10/08/2024 11:59 PM CDT Hospital Encounter [facility] [address] [place] [address] Discharge Disposition: Discharge to home or self care 10/08/2024 8:36 AM CDT - 10/08/2024 11:59 PM CDT Hospital Encounter [facility] [address] [place] [phone] Discharge Disposition: Discharge to home or self care 10/08/2024 8:36 AM CDT - 10/08/2024 11:59 PM CDT Hospital Encounter [facility] [address] [place] [address] Discharge Disposition: Discharge to home or self care 10/08/2024 8:36 AM CDT - 10/08/2024 11:59 PM CDT Hospital Encounter [address] [address] Chest pain, unspecified type Discharge Disposition: Discharge to home or self care 08/27/2024 1:15 PM CDT Office Visit [facility] at [address] [place] [phone] Renee Crowe, BRITTANY Chest pain, unspecified type (Primary Dx); Shortness of breath from Last 3 Months Immunizations Immunization Administration [...] on file 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 Gender Identity Female 06/06/2021 3:12 PM CDT Sexual Orientation Not on file Obstetrics History Last Filed Vital Signs Vital Sign Reading Time Taken Comments Blood Pressure 110/60 10/24/2024 10:29 AM CDT Pulse 82 08/27/2024 1:17 PM CDT Temperature 36.7 C (98.1 F) 05/14/2024 10:09 AM CDT Respiratory Rate 18 08/27/2024 1:17 PM CDT Oxygen Saturation 97% 05/14/2024 10: 09 AM CDT Inhaled Oxygen Concentration - - Weight 103.2 kg (227 lb 9.6 oz) 025 10:29 AM CDT Height 157.5 cm (5' 2) 10/24/2024 10:2 9 AM CDT Body Mass Index 41.63 10/24/2024 10:29 AM CDT Plan of Treatment Upcoming Encounters Date Type Department Care Team (Latest Contact Info) Description 11/06/2024 11:30 AM CDT Hospital Encounter [facility]atheter[facility] [address] [place] [address] Hernandez Victoria MD [address] [facility] [address] [place] [address] [place] [phone] Abnormal stress test; Chest pain, unspecified type 11/06/2024 11:30 AM CDT - 11/06/2024 12:35 PM CDT Surgery [facility] Cathe[facility] [address] [place] [address] Hernandez Victoria MD [address] [facility] [address] [place] [address] [place] [phone] LEFT HEART CATHETERIZATION WITH CORONARY ANGIOGRAPHY AND WITH OR WITHOUT LEFT VENTRICULOGRAM [id number] Health Maintenance Due Date Last Done Comments Breast Cancer Screening-Mammogram 1955 Depression Screening 1955 Hepatitis C Screening 1955 Hepatitis B Screening 1974 Pneumococcal vaccine 65+ (1 of 1 - PCV) 2006 Zoster Vaccine (2 of 3) 07/31/2013 06/05/2013 Well Visit 65+ 2021 Colon Cancer Screening-Colonoscopy 11/15/20222012 Fall Risk Assessment 2023 06/02/2022 Osteoporosis Screening-Bone Density Scan 08/10/2023 08/09/2021 Covid-19 Vaccine (4 - 2024-2 6 season) 2024 02/07/2021, 05/11/2020, 04/20/2020 Influenza Vaccine (#1) 2024 , 11/24/2022, 12/06/2021, Additional history exists DTaP/Tdap/Td Vaccine (2 - Td or Tdap) 04/04/2029 04/04/2019 Procedures Procedure Name Priority Date/Time Associated Diagnosis Comments EGFR Routine 10/24/2024 1:00 PM CDT Abnormal stress test Chest pain, unspecified type DIFFERENTIAL AUTO Routine 10/24/2024 1:0 0 PM CDT Abnormal stress test Chest pain, unspecified type PROTIME-INR Routine 10/24/2024 1:00 PM CDT Abnormal stress test Chest pain, unspecified type BASIC METABOLIC PANEL Routine 10/24/2024 1:00 PM CDT Abnormal stress test Chest pain, unspecified type CBC WITH AUTO DIFFERENTIAL Routine 10/24/2024 1:00 PM CDT Abnormal stress test Chest pain, unspecified type TRANSTHORACIC ECHO (TTE) COMPLETE W DOPPLER/CF WO CONTRAST Routine 10/08/2024 11:22 AM CDT Shortness of breath STRESS TEST FOR DUAL READ Schedule Routine, Read Routine (OP Routine) 10/08/2024 10:00 AM CDT Chest pain, unspecified type NM MPI SPECT (REST AND/OR STRESS) MULTIPLE STUDIES Schedule Routine, Read Routine (OP Routine) 10/08/2024 10:00 AM CDT Chest pain, unspecified type COLONOSCOPY 11/15/2012 12:00 AM CDT from Last 3 Months or Most Recently Relevant to Health Maintenance Results * eGFR (10/24/2024 1:00 PM CDT) eGFR >90 >=60 mL/min/1. 73 m2 Comment: Interpretive Data Reference Interval Normal >/= 90 mL/min/1.73m2 Mildly decreased* 60 - 89 mL/min/1.73m2 Mildly to moderately decreased 45 - 59 mL/min/1.73m2 Moderately to severely decreased 30 - 44 mL/min/1.73m2 Severely decreased 15 - 29 mL/min/1.73m2 Kidney Failure < 15 mL/min/1.73m2 *Relative to young adult level Estimated glomerular filtration rate is determined by the 2020 CKD-EPI equation recommended by the National Kidney Foundation (A Unifying Approach to GFR Estimation: Recommendations of the NKF-ASK Task Force on Reassessing the Inclusion of Race in Diagnosing Kidney Disease, JASN 2020). The CKD-EPI equation should not be used for patients with unstable renal function and has not been validated in children and those over 70. Current interpretive data was last reviewed 2020. Blood 10/24/2024 1:00 PM CDT 10/24/2024 1:26 PM CDT us Hernandez Victoria MD LAB BLOOD ORDERABLES Final Resu lt [facility] ([place]) 1 [facility] Department [place] [address] * Differential, auto (10/24/2024 1:00 PM CDT) Neutrophil abs 2.54 1.50 - 6.50 K/cumm Imm gran abs 0.01 0.00 - 0.10 K/cumm [facility] ([place]) Lymphocyte abs 2.84 0.80 - 3.30 K/cumm [facility] ([place]) Monocyte abs 0.60 0.20 - 0.80 K/cumm [facility] ([place]) Eosinophil abs 0.10 0.00 - 0.50 K/cumm [facility] ([place]) Basophil abs 0.01 0.00 - 0.10 K/cumm [facility] ([place]) Neutrophil pct 41.6 % [facility] ([place]) Comment: Interpretive Data Percent cell count reference ranges are not reported, since discordance with absolute values may lead to misinterpretation of CBC data. Current Interpretive Data was last revised on 2017. Imm gran pct 0.2 % [facility] ([place]) Comment: Interpretive Data Percent cell count reference ranges are not reported, since discordance with absolute values may lead to misinterpretation of CBC data. Current Interpretive Data was last revised on 2017. Lymphocyte pct 46.6 % [facility] ([place]) Comment: Interpretive Data Percent cell count reference ranges are not reported, since discordance with absolute values may lead to misinterpretation of CBC data. Current Interpretive Data was last revised on 2017. Monocyte pct 9.8 % [facility] ([place]) Comment: Interpretive Data Percent cell count reference ranges are not reported, since discordance with absolute values may lead to misinterpretation of CBC data. Current Interpretive Data was last revised on 2017. Eosinophil pct 1.6 % [facility] ([place]) Comment: Interpretive Data Percent cell count reference ranges are not reported, since discordance with absolute values may lead to misinterpretation of CBC data. Current Interpretive Data was last revised on 2017. Basophil pct 0.2 % [facility] ([place]) Comment: Interpretive Data Percent cell count reference ranges are not reported, since discordance with absolute values may lead to misinterpretation of CBC data. Current Interpretive Data was last revised on 2017. Blood 10/24/2024 1:00 PM CDT 10/24/2024 1:26 PM CDT us Hernandez Victoria MD LAB BLOOD ORDERABLES Final Resu lt [facility] ([place]) 1 [facility] Department [place] [address] * (ABNORMAL) CBC with auto differential (10/24/2024 1:00 PM CDT) WBC 6.10 3.80 - 9.90 K/cumm Hgb 12.5 11.9 - 15.5 g/dL [facility] ([place]) Hct 39.1 35.6 - 45.5 % [facility] ([place]) Plt 247 150 - 400 K/cumm [facility] ([place]) MPV 10.7 9.1 - 12.3 fL [facility] ([place]) RBC 3.92 3.90 - 5.20 M/cumm [facility] ([place]) MCV 99.7(H) 81.3 - 96.4 fL [facility] ([place]) MCH 31.9 27.1 - 33.3 pg [facility] ([place]) MCHC 32.0(L) 32.3 - 35.7 g/dL [facility] ([place]) RDW CV 13.2 11.1 - 14.9 % [facility] ([place]) RDW SD 48.6(H) 35.7 - 48.1 fL [facility] ([place]) NRBC abs 0.00 0.00 - 0.01 K/cumm [facility] ([place]) Blood 10/24/2024 1:00 PM CDT 10/24/2024 1:26 PM CDT Hernandez Victoria MD LAB BLOOD ORDERABLES Final Resu lt Performing Organization Address City/[facility] Co de Phone Number [facility] ([place]) 1 [facility] [place] [address] * Protime-INR (10/24/2024 1:00 PM CDT) PT 11.3 10.2 - 13.5 sec [facility] ([place]) INR 1.00 0.90 - 1.20 [facility] ([facility]) Comment: Interpretive data Oral anticoagulant therapeutic ranges: Venous thromboembolism prophylaxis or treatment: 2.0-3.0 CARDIOLOGY Standard range: 2.0-3.0 High-intensity range: 2.5-3.5 Refer to indication-specific guidelines for appropriate target ranges for prosthetic heart valve replacement. Current interpretive data was last revised on 2019. Blood 10/24/2024 1:00 PM CDT 10/24/2024 1:26 PM CDT us Hernandez Victoria MD LAB BLOOD ORDERABLES Final Resu lt Performing Organization Address City/[facility] Co de Phone Number [facility] ([place]) 1 [facility] [place] [address] * (ABNORMAL) Basic metabolic panel (10/24/2024 1:00 PM CDT) Sodium 139 135 - 145 mmol/L [facility] ([place]) Potassium, pl 4.7 3.3 - 4.9 mmol/L [facility] ([place]) Chloride 106 97 - 110 mmol/L [facility] ([place]) CO2 25 22 - 32 mmol/L [facility] ([place]) Anion gap 8 2 - 15 mmol/L [facility] ([place]) BUN 18 6 - 25 mg/dL [facility] ([place]) Creatinine 0.50(L) 0.60 - 1.10 mg/dL [facility] ([place]) Glucose 90 70 - 199 mg/dL [facility] ([place]) Comment: Interpretive Data Fasting glucose >/= 126 mg/dl is diagnostic for diabetes. Fasting is defined as no caloric intake for at least 8 hours. Fasting glucose between 100 mg/dl to 125 mg/dl is diagnostic of prediabetes. In a patient with classic symptoms of hyperglycemia or hyperglycemic crisis, a random glucose >/= 200 mg/dl is diagnostic for diabetes. In the absence of unequivocal hyperglycemia, results should be confirmed by repeat testing. The classification and Diagnosis of Diabetes Diabetes Care 202; 46: S19-S40. Current interpretive data was last revised 2022. Calcium 9.3 8.5 - 10.3 mg/dL [facility] ([place]) Blood 10/24/2024 1:00 PM CDT 10/24/2024 1:26 PM CDT us Hernandez Victoria MD LAB BLOOD ORDERABLES Final Resu lt [facility] ([place]) 1 [facility] Department [place] [address] * TRANSTHORACIC ECHO (TTE) COMPLETE W DOPPLER/CF WO CONTRAST (10/08/2024 11:22 AM CDT) Estimated EF 38 % CONS SCIMAGE Anatomical Region Laterality Modality Ultrasound 10/08/2024 10:5 1 AM CDT Narrative 10/08/2024 4:19 PM CDT [address] [address] Echocardiogram Report Patient Name: JANET RAI : 1955 Study Date: 10/08/2024 10:51:20 AM Gender: F Tech: NL Ref Provider: RENEE CROWE Height(Cm): 157 BSA: 2.1 Weight(Kg): 101.6 Quality: Adequate Order Provider: RENEE CROWE PROCEDURES: Echocardiographic Report: Transthoracic echocardiogram with complete 2D, M-Mode, and color Doppler examination. INDICATIONS: R06.02 Shortness of breath. MEASUREMENTS: 2D/MM Value Range Doppler Value Range EF Teich MM 38.4 % [ 54.0 - 74.0 ] MYRIAM Vmax 2.54 cm2 Estimated EF 38 % AV Mean PG 5 mmHg LVIDd MM 6.66 cm [ 3.80 - 5.20 ] AV Peak Naga 1.51 m/s [ 1.00 - 1.70 ] LVIDs MM 5.39 cm [ 2.20 - 3.50 ] AV VTI 31.57 cm LVPWd MM 1.13 cm [ 0.60 - 0.90 ] LVOT Diam 2.31 cm IVSd MM 0.99 cm [ 0.60 - 0.90 ] LVOT Peak Naga 0.92 m/s [ 0.70 - 1.10 ] LA Dimension MM 3.25 cm [ 2.70 - 3.80 ] LVOT VTI 18.53 cm AoR Diam MM 3.09 cm [ 2.70 - 3.70 ] MV E Peak Naga 0.55 m/s [ 0.60 - 1.30 ] ACS MM 1.89 cm MV A Peak Naga 0.95 m/s [ 1.00 - 1.20 ] MV Mean PG 2 mmHg MV PHT 82 msec [ 20 - 100 ] MVA 2.70 MV Decel Time 284 msec [ 104 - 258 ] PV Peak Naga 0.88 m/s [ 0.40 - 0.80 ] E` 0.06 m/s E/E` 9.08 [ <= 10.00 ] 2D/MM Value Range Doppler Value Range - FINDINGS: Atrial Septum: Normal atrial septum. Left Ventricle: Mild concentric left ventricular hypertrophy. Mild enlargement of left ventricle cavity. Moderate global left ventricular systolic dysfunction. Impaired diastolic relaxation Grade I. Ejection Fraction is estimated to be 38 %. Left Atrium: The left atrium is normal in size. Right Ventricle: Normal right ventricular size. Normal right ventricular systolic function. Right Atrium: The right atrium is normal in size. Aortic Valve: Mild aortic valve regurgitation. Mitral Valve: Normal structure of the mitral valve. Pulmonic Valve: Normal structure of the pulmonic valve. Tricuspid Valve: Normal structure of the tricuspid valve. Normal right ventricular systolic pressure. Pericardium: Normal pericardium with no significant pericardial effusion. Aorta: Normal aortic root. Sinus of Valsalva is normal. Aortic arch is normal. Descending aorta is normal. IVC: Normal size and normal respiratory collapse consistent with normal right atrial pressure (<5 mmHg). Pulmonary Artery: Normal pulmonary artery size. CONCLUSIONS: Mild concentric left ventricular hypertrophy. Mild enlargement of left ventricle cavity. Moderate global left ventricular systolic dysfunction. Impaired diastolic relaxation Grade I. Ejection Fraction is estimated to be 38 %. Mild aortic valve regurgitation. Electronically Signed By: Sylvie Cope MD 10/08/2024 4:18:45 PM CDT Procedure Note Liliana Cope MD - 10/08/2024 [place] [address] Echocardiogram Report Patient Name: JANET RAI : 1955 Study Date: 10/08/2024 10:51:20 AM Gender: F Tech: NL Ref Provider: RENEE CROWE Height(Cm): 157 BSA: 2.1 Weight(Kg): 101.6 Quality: Adequate Order Provider: RENEE CROWE PROCEDURES: Echocardiographic Report: Transthoracic echocardiogram with complete 2D, M-Mode, and color Dopplerexamination. INDICATIONS: R06.02 Shortness of breath. MEASUREMENTS: 2D/MM Value Range Doppler ValueRange EF Teich MM 38.4 % [ 54.0 - 74.0 ] MYRIAM Vmax 2.54cm2 Estimated EF 38 % AV Mean PG 5 mmHg LVIDd MM 6.66 cm [ 3.80 - 5.20 ] AV Peak Naga 1.51 m/s[ 1.00 - 1.70 ] LVIDs MM 5.39 cm [ 2.20 - 3.50 ] AV VTI 31.57cm LVPWd MM 1.13 cm [ 0.60 - 0.90 ] LVOT Diam 2.31cm IVSd MM 0.99 cm [ 0.60 - 0.90 ] LVOT Peak Naga 0.92 m/s[ 0.70 - 1.10 ] LA Dimension MM 3.25 cm [ 2.70 - 3.80 ] LVOT VTI 18.53cm AoR Diam MM 3.09 cm [ 2.70 - 3.70 ] MV E Peak Naga 0.55 m/s[ 0.60 - 1.30 ] ACS MM 1.89 cm MV A Peak Naga 0.95 m/s[ 1.00 - 1.20 ] MV Mean PG 2 mmHg MV PHT 82 msec [ 20 - 100 ] MVA 2.70 MV Decel Time 284 msec [ 104 - 258 ] PV Peak Naga 0.88 m/s [ 0.40 - 0.80 ] E` 0.06 m/s E/E` 9.08 [ <= 10.00 ] 2D/MM Value Range Doppler ValueRange - FINDINGS: Atrial Septum: Normal atrial septum. Left Ventricle: Mild concentric left ventricular hypertrophy. Mild enlargement of leftventricle cavity. Moderate global left ventricular systolic dysfunction. Impaired diastolicrelaxation Grade I. Ejection Fraction is estimated to be 38 %. Left Atrium: The left atrium is normal in size. Right Ventricle: Normal right ventricular size. Normal right ventricular systolicfunction. Right Atrium: The right atrium is normal in size. Aortic Valve: Mild aortic valve regurgitation. Mitral Valve: Normal structure of the mitral valve. Pulmonic Valve: Normal structure of the pulmonic valve. Tricuspid Valve: Normal structure of the tricuspid valve. Normal right ventricular systolicpressure. Pericardium: Normal pericardium with no significant pericardial effusion. Aorta: Normal aortic root. Sinus of Valsalva is normal. Aortic arch is normal.Descending aorta is normal. IVC: Normal size and normal respiratory collapse consistent with normal rightatrial pressure (<5 mmHg). Pulmonary Artery: Normal pulmonary artery size. CONCLUSIONS: Mild concentric left ventricular hypertrophy. Mild enlargement of leftventricle cavity. Moderate global left ventricular systolic dysfunction. Impaired diastolicrelaxation Grade I. Ejection Fraction is estimated to be 38 %. Mild aortic valve regurgitation. Electronically Signed By: Sylvie Cope MD 10/08/2024 4:18:45 PM CDT us Renee Crowe NP CV ECHO PROCEDURES Keila l Result * NM MPI SPECT (Rest and/or Stress) Multiple Studies (10/08/2024 10:00 AM CDT) Anatomical Region Laterality Modality Body N/A Nuclear Medicine 10/08/2024 9:00 AM CDT Narrative 10/10/2024 1:13 PM CDT [address] [address] Lexiscan Report Patient Name: JANET RAI : 1955 Study Date: 10/08/2024 9:00:50 AM Sex: F Tech: Ref Provider: RENEE CROWE Height(Cm): BSA: Weight(Kg): Order Provider: RENEE CROWE PROCEDURES: Pharmacologic SPECT Report.: Myocardial perfusion imaging with Sestamibi SPECT at rest and post regadenoson (Lexiscan) infusion. INDICATIONS: R07.9 Chest pain, unspecified. FINDINGS: Procedure Data: Sestamibi injected at rest was 10.3 millicuries Sestamibi injected at peak exercise was 31.1 millicuries Predicted Maximal HR 152 bpm LV Function: Left ventricular ejection fraction is 40 %. CONCLUSIONS: 1. Myocardial Perfusion: Abnormal: 2. There is a small-sized inferior and inferoapical wall reversible perfusion defect of mild intensity likely consistent with ischemia present. 3. Left ventricle: Enlargement with mildly depressed systolic function (visually confirmed EF 40%). Electronically Signed By: Laquita Montes De Oca MD 10/10/2024 12:54:56 PM CDT Procedure Note Laquita Montes De Oca MD - 10/10/[address] [address] LexiscRecognia Report Patient Name: JANET RAI : 1955 Study Date: 10/08/2024 9:00:50 AM Sex: F Tech: Ref Provider: RENEE CROWE Height(Cm): BSA: Weight(Kg): Order Provider: RENEE CROWE PROCEDURES: Pharmacologic SPECT Report.: Myocardial perfusion imaging with Sestamibi SPECT at rest and postregadenoson (Lexiscan) infusion. INDICATIONS: R07.9 Chest pain, unspecified. FINDINGS: Procedure Data: Sestamibi injected at rest was 10.3 millicuries Sestamibi injected at peak exercise was 31.1 millicuries Predicted Maximal HR 152 bpm LV Function: Left ventricular ejection fraction is 40 %. CONCLUSIONS: 1. Myocardial Perfusion: Abnormal: 2. There is a small-sized inferior and inferoapical wall reversibleperfusion defect of mild intensity likely consistent with ischemia present. 3. Left ventricle: Enlargement with mildly depressed systolic function(visually confirmed EF 40%). Electronically Signed By: Laquita Montes De Oca MD 10/10/2024 12:54:56 PM CDT Renee Crowe [employer]PER[employer] IMG NM PROCEDURES Final Result * Stress Test for Myocardial Perfusion (10/08/2024 10:00 AM CDT) Anatomical Region Laterality Modality Nuclear Medicine 10/08/2024 9:15 AM CDT Narrative 10/08/2024 12:42 PM CDT [address] [address] Co-Work Report Patient Name: JANET RAI : 1955 Study Date: 10/08/2024 9:15:00 AM Gender: F Tech: Lavelle Hernandes Ref Provider: RENEE CROWE Height(Cm): 157 BSA: 3.19 Weight(Kg): 232 Heart Rate: 129 Order Provider: RENEE CROWE PROCEDURES: Pharmacologic SPECT Report.: Myocardial perfusion imaging with Sestamibi SPECT at rest and post regadenoson (Lexiscan) infusion. INDICATIONS: R07.9 Chest pain, unspecified. FINDINGS: Procedure Data: Resting HR 79 bpm Peak HR: 117 bpm Predicted Maximal HR 152 bpm Target HR: 129 bpm Percent Max Predicted HR Achieved: 76.97 % Baseline BP: 111/80 mmHg Peak BP: 114/79 mmHg Exercise Time: 00:14 Medications: Free Text. Performed By: Supervising Physician: The Supervising Physician is dagmar esqueda. Reason for Termination: Lexiscan protocol complete. Resting ECG: Normal sinus rhythm at 81 beats per minute, normal axis. Post Pharm ECG: No diagnostic ST changes. Arrhythmia: Rare APCs. Cardiac Symptoms With Stress: Symptoms with stress were None. Exam Interpreted: Read by . CONCLUSIONS: 1. Negative Lexiscan pharmacologic stress test for chest pain or EKG changes. 2. Nuclear images are pending and they will be reported separately. Electronically Signed By: Dr Dagmar Esqueda 10/08/2024 11:47:51 AM CDT Procedure Note Dagmar Esqueda MD - 10/08/[address] [place] [address] LexiscRecognia Report Patient Name: JANET RAI : 1955 Study Date: 10/08/2024 9:15:00 AM Gender: F Tech: Lavelle Hernandes Ref Provider: RENEE CROWE Height(Cm): 157 BSA: 3.19 Weight(Kg): 232 Heart Rate: 129 Order Provider: RENEE CROWE PROCEDURES: Pharmacologic SPECT Report.: Myocardial perfusion imaging with Sestamibi SPECT at rest and postregadenoson (Lexiscan) infusion. INDICATIONS: R07.9 Chest pain, unspecified. FINDINGS: Procedure Data: Resting HR 79 bpm Peak HR: 117 bpm Predicted Maximal HR 152 bpm Target HR: 129 bpm Percent Max Predicted HR Achieved: 76.97 % Baseline BP: 111/80 mmHg Peak BP: 114/79 mmHg Exercise Time: 00:14 Medications: Free Text. Performed By: Supervising Physician: The Supervising Physician is dagmar esqueda. Reason for Termination: Lexiscan protocol complete. Resting ECG: Normal sinus rhythm at 81 beats per minute, normal axis. Post Pharm ECG: No diagnostic ST changes. Arrhythmia: Rare APCs. Cardiac Symptoms With Stress: Symptoms with stress were None. Exam Interpreted: Read by . CONCLUSIONS: 1. Negative Lexiscan pharmacologic stress test for chest pain or EKGchanges. 2. Nuclear images are pending and they will be reported separately. Electronically Signed By: Dr Dagmar Esqueda 10/08/2024 11:47:51 AM CDT Renee Crowe NP CV STRESS PROCEDURES Fi nal Result * COLONOSCOPY (11/15/2012 12:00 AM CDT) Anatomical Region Laterality Modality Other Narrative 11/15/2012 12:00 AM CDT Ordered by an unspecified provider. Procedure Note Provider, MD Jeff - 11/15/2012 12:00 AM CDT PROCEDURE REPORT Patient: JANET RAI Account: [id number] Room No: : 1955 Patient Type: [facility] Attend.: Castillo Joy M.D. Admit Date: [...] No bleeding sites seen. Castillo Joy M.D. DR/terese TD: 11/16/2012 06:46 CC: Dr. Bales Authenticated by Castillo Joy MD On 11/18/2012 08:37:59 AM Historical Provider ENDOSCOPY PROCEDURES Keila l Result from Last 3 Months or Most Recently Relevant to Health Maintenance Insurance MEDICARE [facility] MEDICARE [place] [address] Care Teams Business Support Liaison Relationship Specialty Start Date End Date Renny Bales MD PCP - General Internal Medicine 09/30/21
--- OUTSIDE RECORDS SUMMARY | 2024-10-27 08:56 | XMS_ITS | Patient Health Record ---
Author Organization 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 Name Role Phone Renny Bales Unavailable Unavailable Reason For Referral No Information Medications Medication SIG (Take, Route, Frequency, Duration) Notes Start Date End Date Status Medrol Dosepak ORAL Medrol DosepakOr iginal MedicationMedrol Dosepak *Reorder from Acrinta[employer] Vari[employer] for eRx and Interaction Alerts* 6 Active Nabumetone 500 MG Oral Tablet ORAL nabumetone 500 MG Oral TabletOriginal Medicationnabumetone 500 MG Oral Tablet *Reorder from SL8Z | [employer] for eRx and Interaction Alerts* 6 Active levothyroxine sodium 0.1 MG Oral Tablet ORAL levothyroxine sodium 0.1 MG Oral TabletOriginal Medicationlevothyroxine sodium 0.1 MG Oral Tablet *Reorder from Acrinta[employer] Vari[employer] for eRx and Interaction Alerts* 6 Active duloxetine 30 MG Delayed Release Oral Capsule ORAL duloxetine 30 MG Delayed Release Oral CapsuleOriginal Medicationduloxetine 30 MG Delayed Release Oral Capsule *Reorder from Ac[employer] for eRx and Interaction Alerts* 6 Active copper gluconate 2 MG Oral Capsule ORAL copper gluconate 2 MG Oral CapsuleOriginal Medicationcopper gluconate 2 MG Oral Capsule *Reorder from AcrintaAMS [employer] for eRx and Interaction Alerts* 7 Active cholecalciferol 0.025 MG Oral Tablet ORAL cholecalciferol 0.025 MG Ora l TabletOriginal Medicationcholecalciferol 0.025 MG Oral Tablet *Reorder from Ac[employer]AMS Vari[employer] for eRx and Interaction Alerts* 6 Active calcium carbonate 1250 MG / cholecalciferol 0.01 MG Oral Tablet ORAL calcium carbonate 1250 MG / cholecalciferol 0.01 MG Oral TabletOriginal Medicationcalcium carbonate 1250 MG / cholecalciferol 0.01 MG Oral Tablet *[facility] eRx and Interaction Alerts* 6 Active beta carotene 99232 UNT Oral Capsule ORAL beta carotene 77977 UNT Oral CapsuleOriginal Medicationbeta carotene 57960 UNT Oral Capsule *[facility] and Interaction Alerts* 6 Active potassium chloride 8 MEQ Extended Release Oral Tablet [Klor-Con] ORAL potassium chloride 8 MEQ Extended Release Oral Tablet [Klor-Con]Original Medicationpotassium chloride 8 MEQ Extended Release Oral Tablet [Klor-Con] *Reorder from AcrintaAMS VariCode for eRx and Interaction Alerts* 6 Active [...] MG Delayed Release Oral Tablet *Reorder from AcrintaAMS Vari[employer] for eRx and Interaction Alerts* 6 Active metoclopramide 5 MG Disintegrating Oral Tablet ORAL metoclopramide 5 MG Disintegrating Oral TabletOriginal Medicationmetoclopramide 5 MG Disintegrating Oral Tablet *Reorder from SL8Z | [employer] for eRx and Interaction Alerts* 6 Active Plan Of Treatment No Information Insurance Providers Payer Name Payer Address Payer Phone Subscriber Number Group Number Insured Name Patient Relationship to Insured Coverage Start Date Coverage End Date [facility] ATTN CLAIMS [address] [place] [address] [id number] MARY FORTUNE Self - patient is the insured"
--- OUTSIDE RECORDS SUMMARY | 2024-10-27 08:56 | XMS_ITS | Clinical Summary ---
Author Organization [facility] Address [address] [address] Phone Care Team Providers Care Certified Financial Planner Name Role Phone Renny Bales MD Primary Care Provider [phone] Luciana Jonny Velazco DO Unavailable [phone] Allergies Active Allergy Reactions Criticality Noted [...] mouth 3 times daily. Active vitamin A 07400 UNIT Capsule Take 25,000 Units by mouth [...] UNIT Tablet Take by mouth. Activ e Kimball-3 1000 MG Capsule Take by mouth. Activ [...] 2006 Zoster Immunization (1 of 2) 2006 Influenza Immunization (#1) 2024 SARS-COV-2 Immunization ( - season) 2024 Respiratory Syncytial Virus (RSV) Immunization (Adult) [...] patient's age to complete this topic Insurance [facility] Care Teams Certified Financial Planner Relationship Specialty Start Date End Date Renny Bales MD [address] [place] [address] PCP - General Internal Medicine 05/13/15 Jonny Chowdhury DO [address] [place] [address] Gastroenterology 05/13/15
[2024-10-27 09:15] VITALS: BP 120/61
--- NOTE | 2024-10-27 09:23 | PC.NURSE ---
Tolerated yearly Reclast infusion well. SEE MAR/patient care notes.
== END 2024-10-27 08:19 | disposition home or self-care (01) ==
PROVIDERS: PCP Internal Medicine; Visit Provider Internal Medicine
DX: M81.0 Age-related osteoporosis without current pathological fracture (principal)
CPT/HCPCS: 96374; J3489